=== PATIENT | female | born 1995 | race Two or more races ===

== ENCOUNTER 2017-06-20 12:31 | Emergency (ER) | payer MEDICAID ==
[~2017-06-20] VITALS: Ht 167.6 cm; Wt 61.2 kg
[~2017-06-20 12:31] MED LIST: IBUP40DR2; VENTOLIN
[2017-06-20 12:51] VITALS: BP 165/65
[2017-06-20] MEDS ORDERED: IBUPROFEN 100MG/5ML ORAL SUSP 100 MG/5 ML UD PO ONE (13:45)
[2017-06-20] MEDS ORDERED: cefTRIAXone SOD 1,000 MG VL IM ONE (13:45)
[2017-06-20] MEDS ORDERED: ACETAMINOPHEN 650 mg PER 20 mL UD PO ONE (13:45)
[2017-06-20 13:47] LABS: Basophils # (auto) 0 uL; Basophils % (auto) 0.2 % (0.0-2.0); Eosinophils # (auto) 0.1 uL; Eosinophils % (auto) 0.9 % (0.0-7.0); Hematocrit 40.1 % (36.0-46.0); Hemoglobin 13.2 g/dL (12.2-16.2); Lymphocytes # (auto) 2.3 uL; Lymphocytes % (auto) 15.9 % (10.0-50.0); Mean Corpuscular Hemoglobin 29.8 pg (28.0-32.0); Mean Corpuscular Hgb Conc. 33.1 g/dL (32.0-36.0); Mean Corpuscular Volume 90.1 fL (80.0-100.0); Monocytes # (auto) 1.5 uL; Monocytes % (auto) 10.6 % (0.0-12.0); Neutrophils # (auto) 10.5 uL; Neutrophils % (auto) 72.4 % (37.0-80.0); Platelet Count (auto) 203 10^3/uL (140-450); Red Blood Cells 4.45 10^6/uL (4.0-5.20); Red Cell Distribution Width 13.3 % (11.8-14.3); White Blood Cell 14.6 10^3/uL (4.4-10.8)
[2017-06-20 14:04] LABS: BUN/Creatinine Ratio 12.3; Calcium 8.7 mg/dL (8.5-10.1)
[2017-06-20 15:58] LABS: Urine Bacteria MANY /hpf (None Seen); Urine Blood Negative /uL (Negative); Urine Mucus FEW (None Seen); Urine Specific Gravity 1.012 (1.001-1.035); Urine WBC 3 /hpf (0 - 5)
== END 2017-06-20 15:39 | disposition home or self-care (01) ==
LOC: ER 12:31
DX: J03.90 Acute tonsillitis, unspecified (principal); Z88.6 Allergy status to analgesic agent
CPT/HCPCS: 36415; 70486; 80048; 81001; 84702; 85025; 96372; 99285; J0696

== ENCOUNTER 2017-09-12 00:51 | Emergency (ER) | payer SELFPAY ==
[~2017-09-12] VITALS: Ht 167.6 cm; Wt 63.5 kg
[2017-09-12 00:58] VITALS: BP 119/60
[2017-09-12 01:20] LABS: Basophils # (auto) 0 uL; Basophils % (auto) 0.5 % (0.0-2.0); Eosinophils # (auto) 0.2 uL; Eosinophils % (auto) 2.9 % (0.0-7.0); Hematocrit 39.3 % (36.0-46.0); Hemoglobin 13.7 g/dL (12.2-16.2); Lymphocytes # (auto) 2.7 uL; Lymphocytes % (auto) 33.4 % (10.0-50.0); Mean Corpuscular Hgb Conc. 34.8 g/dL (32.0-36.0); Mean Corpuscular Volume 89.1 fL (80.0-100.0); Monocytes # (auto) 0.5 uL; Monocytes % (auto) 6.7 % (0.0-12.0); Neutrophils # (auto) 4.6 uL; Neutrophils % (auto) 56.5 % (37.0-80.0); Platelet Count (auto) 234 10^3/uL (140-450); Red Blood Cells 4.41 10^6/uL (4.0-5.20); Red Cell Distribution Width 13.8 % (11.8-14.3); White Blood Cell 8.1 10^3/uL (4.4-10.8)
[2017-09-12 01:47] LABS: Albumin 3.5 g/dL (3.4-5.0); BUN/Creatinine Ratio 14.1; Calcium 8.6 mg/dL (8.5-10.1)
[2017-09-12 01:49] LABS: Bilirubin, Total 0.4 mg/dL (0.2-1.0); Total Protein 6.8 g/dL (6.4-8.2)
[2017-09-12 02:12] LABS: INR 0.91 (0.9-1.15); Partial Thromboplastin Time 26.9 sec (23.78-33.04); Prothrombin Time 9.8 sec (9.27-12.13)
== END 2017-09-12 04:00 | disposition left against medical advice (07) ==
LOC: ER 00:53
DX: N93.9 Abnormal uterine and vaginal bleeding, unspecified (principal); Z53.21 Procedure and treatment not carried out due to patient leaving prior to being seen by health care provider
CPT/HCPCS: 36415; 80053; 84702; 85025; 85610; 85730; 86850; 86900; 86901

== ENCOUNTER 2020-07-31 21:20 | Emergency (ER) | payer MEDICAID ==
[~2020-07-31] VITALS: Ht 167.6 cm; Wt 61.2 kg
[2020-07-31 22:33] LABS: Basophils # (auto) 0 10 ^3/uL (0-0.2); Basophils % (auto) 0.5 % (0.0-2.0); Eosinophils # (auto) 0.3 10 ^3/uL (0-0.8); Eosinophils % (auto) 3.1 % (0.0-7.0); Hematocrit 33.5 % (36.0-46.0); Hemoglobin 12.1 g/dL (12.2-16.2); Lymphocytes # (auto) 3.2 10 ^3/uL (0.4-5.4); Lymphocytes % (auto) 35.4 % (10.0-50.0); Mean Corpuscular Hemoglobin 32.3 pg (28.0-32.0); Mean Corpuscular Hgb Conc. 36.1 g/dL (32.0-36.0); Mean Corpuscular Volume 89.4 fL (80.0-100.0); Monocytes # (auto) 0.7 10 ^3/uL (0-1.3); Monocytes % (auto) 7.3 % (0.0-12.0); Neutrophils # (auto) 4.9 10 ^3/uL (1.6-8.6); Neutrophils % (auto) 53.7 % (37.0-80.0); Nucleated Red Blood Cells % 0.2 %; Platelet Count (auto) 225 10^3/uL (140-450); Red Blood Cells 3.74 10^6/uL (4.0-5.20); Red Cell Distribution Width 12.9 % (11.8-14.3); White Blood Cell 9.1 10^3/uL (4.4-10.8)
[2020-07-31 22:52] LABS: Albumin 2.9 g/dL (3.4-5.0); Calcium 7.9 mg/dL (8.5-10.1); Potassium 3.8 mmol/L (3.5-5.1)
[2020-07-31 22:56] LABS: BUN/Creatinine Ratio 15.4; Bilirubin, Total 0.4 mg/dL (0.2-1.0); Total Protein 5.7 g/dL (6.4-8.2)
[2020-08-01 03:00] VITALS: BP 118/72
== END 2020-08-01 05:01 | disposition home or self-care (01) ==
LOC: EDUNIT# 21:20 → EDBD 21:20 → ER 21:23
DX: R56.9 Unspecified convulsions (principal); F41.9 Anxiety disorder, unspecified; J45.909 Unspecified asthma, uncomplicated; F17.210 Nicotine dependence, cigarettes, uncomplicated; F12.10 Cannabis abuse, uncomplicated; R55 Syncope and collapse
CPT/HCPCS: 36415; 70450; 80053; 82962; 84702; 85025; 93005

== ENCOUNTER 2021-06-17 18:01 | Emergency (ER) | payer MEDICAID ==
[~2021-06-17] VITALS: Ht 165.1 cm; Wt 61.2 kg
[2021-06-17 19:05] LABS: Basophils # (auto) 0.1 10 ^3/uL (0-0.2); Basophils % (auto) 0.9 % (0.0-2.0); Eosinophils # (auto) 0.2 10 ^3/uL (0-0.8); Eosinophils % (auto) 2.5 % (0.0-7.0); Hematocrit 36.8 % (36.0-46.0); Hemoglobin 12.9 g/dL (12.2-16.2); Lymphocytes # (auto) 3.7 10 ^3/uL (0.4-5.4); Mean Corpuscular Hgb Conc. 35.1 g/dL (32.0-36.0); Mean Corpuscular Volume 88.3 fL (80.0-100.0); Monocytes # (auto) 0.6 10 ^3/uL (0-1.3); Monocytes % (auto) 6.8 % (0.0-12.0); Neutrophils # (auto) 4.8 10 ^3/uL (1.6-8.6); Neutrophils % (auto) 50.8 % (37.0-80.0); Nucleated Red Blood Cells % 0.1 %; Red Blood Cells 4.16 10^6/uL (4.0-5.20); Red Cell Distribution Width 14.6 % (11.8-14.3); White Blood Cell 9.5 10^3/uL (4.4-10.8)
[2021-06-17 19:15] LABS: Albumin 3.8 g/dL (3.4-5.0); Calcium 9.7 mg/dL (8.5-10.1)
[2021-06-17 19:18] LABS: Bilirubin, Total 0.8 mg/dL (0.2-1.0); Total Protein 7.6 g/dL (6.4-8.2)
[2021-06-17] MEDS ORDERED: SODIUM CHLORIDE 0.9% 1,000 ML IV ONE (20:15)
[2021-06-17] MEDS ORDERED: cefTRIAXone SOD 500 MG VL IV ONE (20:15)
[2021-06-17] MEDS ORDERED: metroNIDAZOLE 500 MG TAB PO ONE (20:15)
[2021-06-17] MEDS ORDERED: DOXYCYCLINE 100 MG TAB/CAP PO ONE (20:15)
[2021-06-17 20:41] LABS: Basophils # (auto) 0.1 10 ^3/uL (0-0.2); Basophils % (auto) 0.7 % (0.0-2.0); Eosinophils # (auto) 0.3 10 ^3/uL (0-0.8); Eosinophils % (auto) 2.5 % (0.0-7.0); Hematocrit 37.4 % (36.0-46.0); Hemoglobin 12.9 g/dL (12.2-16.2); Lymphocytes % (auto) 39.2 % (10.0-50.0); Mean Corpuscular Hemoglobin 30.8 pg (28.0-32.0); Mean Corpuscular Hgb Conc. 34.6 g/dL (32.0-36.0); Mean Corpuscular Volume 89.1 fL (80.0-100.0); Monocytes # (auto) 0.7 10 ^3/uL (0-1.3); Monocytes % (auto) 7.1 % (0.0-12.0); Neutrophils # (auto) 5.2 10 ^3/uL (1.6-8.6); Neutrophils % (auto) 50.5 % (37.0-80.0); Nucleated Red Blood Cells % 0.1 %; Red Cell Distribution Width 14.9 % (11.8-14.3); White Blood Cell 10.2 10^3/uL (4.4-10.8)
[2021-06-17 20:58] LABS: Calcium 9.7 mg/dL (8.5-10.1); Magnesium 2.4 mg/dL (1.6-2.6)
[2021-06-17 21:00] LABS: BUN/Creatinine Ratio 23.6
[2021-06-17] MEDS ORDERED: DOXY-286 PO (21:16)
[2021-06-17] MEDS ORDERED: METR500T14 PO (21:16)
[2021-06-17 23:46] VITALS: BP 96/66
== END 2021-06-17 22:30 | disposition home or self-care (01) ==
LOC: ER 18:11
DX: R56.9 Unspecified convulsions (principal); N89.8 Other specified noninflammatory disorders of vagina; J45.909 Unspecified asthma, uncomplicated; F17.210 Nicotine dependence, cigarettes, uncomplicated
CPT/HCPCS: 36415; 80048; 80053; 80164; 83735; 84702; 85025; 86592; 86703; 93005; 96361; 96374; 99285; J0696; J7030

== ENCOUNTER 2021-08-08 03:24 | Emergency (ER) | payer MEDICAID ==
[~2021-08-08] VITALS: Ht 167.6 cm; Wt 59.0 kg
[~2021-08-08 03:24] MED LIST changes: +DOXY-286 PO; +METR500T14 PO
[2021-08-08] MEDS ORDERED: ONDANSETRON HCL 4 MG/2 ML VIAL ONE (03:44)
[2021-08-08] MEDS ORDERED: ONDANSETRON HCL 4 MG/2 ML VIAL IV ONE (03:45)
[2021-08-08 04:55] LABS: Albumin 3.4 g/dL (3.4-5.0); Calcium 8.6 mg/dL (8.5-10.1); Potassium 4.2 mmol/L (3.5-5.1)
[2021-08-08 04:58] LABS: BUN/Creatinine Ratio 20.5; Bilirubin, Total 0.6 mg/dL (0.2-1.0); Total Protein 6.8 g/dL (6.4-8.2)
[2021-08-08 06:21] LABS: Basophils # (auto) 0 10 ^3/uL (0-0.2); Basophils % (auto) 0.3 % (0.0-2.0); Eosinophils # (auto) 0.1 10 ^3/uL (0-0.8); Eosinophils % (auto) 0.9 % (0.0-7.0); Hematocrit 37.5 % (36.0-46.0); Hemoglobin 12.7 g/dL (12.2-16.2); Lymphocytes # (auto) 1.6 10 ^3/uL (0.4-5.4); Lymphocytes % (auto) 12.6 % (10.0-50.0); Mean Corpuscular Hemoglobin 29.9 pg (28.0-32.0); Mean Corpuscular Hgb Conc. 33.9 g/dL (32.0-36.0); Mean Corpuscular Volume 88.4 fL (80.0-100.0); Monocytes # (auto) 0.9 10 ^3/uL (0-1.3); Monocytes % (auto) 6.7 % (0.0-12.0); Neutrophils # (auto) 10.1 10 ^3/uL (1.6-8.6); Neutrophils % (auto) 79.5 % (37.0-80.0); Red Blood Cells 4.24 10^6/uL (4.0-5.20); Red Cell Distribution Width 13.4 % (11.8-14.3); White Blood Cell 12.7 10^3/uL (4.4-10.8)
[2021-08-08 08:28] LABS: Urine Bacteria NONE SEEN /hpf (None Seen); Urine Blood 1+ /uL (Negative); Urine Budding Yeast OCCASIONAL /hpf (None Seen); Urine Mucus FEW (None Seen); Urine Specific Gravity 1.021 (1.001-1.035); Urine WBC 247 /hpf (0 - 5); Urine WBC Clumps PRESENT /hpf (None Seen)
[2021-08-08 09:14] LABS: Alcohol, Urine < 3.0 mg/dL (0-10); Amphetamine Screen, Urine POSITIVE (NEGATIVE); Barbiturate Scree,Urine NEGATIVE (NEGATIVE); Benzodiazephine Screen, Urine NEGATIVE (NEGATIVE); Cannabinoid Screen, Urine POSITIVE (NEGATIVE); Cocaine Screen, Urine NEGATIVE (NEGATIVE); Opiate Scree,Urine NEGATIVE (NEGATIVE); Phencyclidine Screen, Urine NEGATIVE (NEGATIVE)
[2021-08-08 10:00] VITALS: BP 99/64
[2021-08-08] MEDS ORDERED: LORA0.5T20 PO (10:02)
[2021-08-08] MEDS ORDERED: NITR-87 PO (10:53)
== END 2021-08-08 10:58 | disposition home or self-care (01) ==
LOC: ER 03:24
DX: R56.9 Unspecified convulsions (principal); N39.0 Urinary tract infection, site not specified
CPT/HCPCS: 36415; 70450; 70486; 72125; 80053; 80307; 81001; 81025; 93005; 96374; 99285; J2405

== ENCOUNTER 2021-11-20 06:50 | Emergency (ER) | payer MEDICAID ==
[~2021-11-20] VITALS: Ht 172.7 cm; Wt 60.0 kg
[~2021-11-20 06:50] MED LIST changes: +LORA0.5T20 PO; +NITR-87 PO
[2021-11-20 07:34] VITALS: BP 90/38
[2021-11-20] MEDS ORDERED: SODIUM CHLORIDE 0.9% 1,000 ML IVB ONE (07:45)
== END 2021-11-20 12:45 | disposition left against medical advice (07) ==
LOC: EDUNIT# 06:50 → ER 06:50 → EDBD 06:50 → ER 08:45
DX: T40.411A Poisoning by fentanyl or fentanyl analogs, accidental (unintentional), initial encounter (principal); R41.82 Altered mental status, unspecified; F41.9 Anxiety disorder, unspecified; J45.909 Unspecified asthma, uncomplicated; F17.210 Nicotine dependence, cigarettes, uncomplicated; F12.10 Cannabis abuse, uncomplicated; Y92.9 Unspecified place or not applicable
CPT/HCPCS: 96360; 99283; J7030

== ENCOUNTER 2022-01-30 10:19 | Emergency (ER) | payer MEDICAID | END 2022-01-30 10:23 | disposition left against medical advice (07) | LOC: EDBD 10:19 → ER 10:19 | DX: R53.1 Weakness (principal); Z53.21 Procedure and treatment not carried out due to patient leaving prior to being seen by health care provider ==

== ENCOUNTER 2024-09-03 05:53 | Inpatient (IN) | payer MEDICAID ==
[~2024-09-03] VITALS: Ht 167.6 cm; Wt 71.1 kg
[2024-09-03] VITALS (7 sets, daily range): BP systolic 97–106; BP diastolic 52–72; PULSE 68–99; RESP 14–24; TEMP 97.6–98.2; O2SAT 97–100
[~2024-09-03 05:53] MED LIST changes: +LORA-1121 PO; -LORA0.5T20 PO; +METR-344 PO; -METR500T14 PO
--- NOTE | 2024-09-03 07:06 | ED.PDOC ---
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 Patient reports on trying to sleep off with the pain, to the bilateral flank areas. The associated symptoms foul smell during urination, pain during urination, nausea and vomiting. Denies chills, fever, /D, SOB, CP. No other associated symptoms, modifiers, recent injuries or sick contacts present at this time. Chief Complaint: Flank Pain Time Seen by MD: 06:40 Primary Care Provider: NINE Reviewed Notes: Nurses Notes, Medications, Allergies Allergies: Coded Allergies: Hydromorphone (Verified Allergy, Unknown, 06/17/21) Home Meds Active Scripts Nitrofurantoin Monohydrate Mac (Macrobid) 100 Mg Cap, 100 MG PO BID for 7 Days, #14 CAP Prov:ALEXANDRU JOSE MD 08/08/21 Lorazepam (ATIVAN TABLET) 0.5 Mg Tb, 1 TAB PO BID for 3 Days, #6 TAB Prov:ALEXANDRU JOSE MD 08/08/21 Metronidazole (Flagyl) 500 Mg Tab, 1 TAB PO BID, #14 TAB 0 Refills Do not consume alcohol while taking this medication. Prov:GYPSY LOPEZ MD 06/17/21 Doxycycline Hyclate (DOXYCYCLINE HYCLATE) 100 Mg Tab, 1 TAB PO BID, #14 TAB 0 Refills Prov:GYPSY LOPEZ MD 06/17/21 Reported Medications [Ventolin] No Conflict Check 11/30/09 Ibuprofen (Childrens Ibuprofen) 40 Mg/Ml Edson 11/30/09 Information Source: Patient Mode of Arrival: EMS Severity: Moderate Timing: Days Duration: Since onset, Days Prehospital treatment: None Past Medical History PAST MEDICAL HISTORY: Anxiety, Asthma, Cancer (Kidney cancer), Seizures Past Medical History (Other): Nephrectomy-right side Surgical History (Other): Tumor removal from kidney(unknown which side) 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 Family History Family History: Reviewed,noncontributory to illness Family History (Other): family history positive for seizures in father Social History Smoker: Unknown Alcohol: Unknown Drugs: Unknown Lives In: Home Constitutional: denies: chills, diaphoresis, fatigue, fever, malaise, sweats, weakness, others EENTM: denies: blurred vision, double vision, ear bleeding, ear discharge, ear drainage, ear pain, ear ringing, eye pain, eye redness, hearing loss, mouth pain, mouth swelling, nasal discharge, nose bleeding, nose congestion, nose pain, photophobia, tearing, throat pain, throat swelling, voice changes, others Respiratory: denies: cough, hemoptysis, orthopnea, SOB at rest, shortness of b reath, SOB with excertion, stridor, wheezing, others Cardiovascular: denies: chest pain, dizzy spells, diaphoresis, Dyspnea on exertion, edema, irregular heart beat, left arm pain, lightheadedness, palpitations, PND, syncope, others Gastrointestinal: reports: nausea, vomiting; denies: abdomen distended, abdominal pain, blood streaked bowels, constipated, diarrhea, dysphagia, difficulty swallowing, hematemesis, melena, poor appetite, poor fluid intake, rectal bleeding, rectal pain, others Genitourinary: reports: flank pain, pain (During urination), others (Foul smell in urine); denies: abnormal vagina bleeding, burning, dyspareunia, dysuria, frequency, hematuria, incontinence, , vagina discharge, urgency Neurological: denies: dizziness, fainting, headache, left sided numbness, left sided weakness, numbness, paresthesia, pre-existing deficit, right sided numbness, right sided weakness, seizure, speech problems, tingling, tremors, weakness, others Musculoskeletal: denies: back pain, gout, joint pain, joint swelling, muscle pain, muscle stiffness, neck pain, others Integumetry: denies: bruises, change in color, change in hair/nails, dryness, laceration, lesions, lumps, rash, wounds, others Allergic/Immunocompromised: denies: Difficulty Healing, Frequent Infections, Hives, Itching, others Hematologic/Lymphatic: denies: anemia, blood clots, easy bleeding, easy bruising, swollen glands, others Endocrine: denies: excessive hunger, excessive sweating, excessive thirst, excessive urination, flushing, intolerance to cold, intolerance to heat, unexplained weight gain, unexplained weight loss, others Psychiatric: denies: anxiety, bipolar disorder, depression, hopeless, panic disorder, schizophrenia, sleepless, suicidal, others All Other Systems: Reviewed and Negative Physical Exam General Appearance: Moderate Distress, Normal HEENT: Normal ENT Inspection, Pharynx Normal, TMs Normal Neck: Full Range of Motion, Non-Tender, Normal, Normal Inspection Respiratory: Chest Non-Tender, Lungs Clear, No Accessory Muscle Use, No Respiratory Distress, Normal Breath Sounds Cardiovascular: No Edema, No JVD, No Murmur, No Gallop, Normal Peripheral Pulses, Regular Rate/Rhythm Breast Exam: Deferred Gastrointestinal: No Organomegaly, Non Tender, No Pulsatile Mass, Normal Bowel Sounds, Soft Genitalia: Deferred Pelvic: Deferred Rectal: Deferred Extremities: No calf tenderness, Normal capillary refill, Normal inspection, Normal range of motion, Non-tender, No pedal edema Musculoskeletal : Apperance: Normal Neurologic: Alert, artificial inseminator II-XII nml as Tested, No Motor Deficits, Normal Affect, Normal Mood, No Sensory Deficits Cerebellar Function: Normal Reflexes: Normal Skin: Dry, Normal Color, Warm Peripheral Pulses: 3+ Radial (R), 3+ Radial (L) Lymphatic: No Adenopathy Was a procedure done? Was a procedure done?: No Differential Dx Considerations may include: Urinary tract infection Electrolyte imbalance X-Ray, Labs, Meds, VS Vital Signs Date Time Temp Pulse Resp B/P (MAP) Pulse Ox O2 Delivery O2 Flow Rate FiO2 09/03/24 07:40 99 24 99 Room Air* 0 21 09/03/24 07:39 99.2 99 24 109/57 (74) 99 99.2 09/03/24 07:39 99 24 99 Room Air 09/03/24 07:37 99 24 109/57 09/03/24 06:02 98.7 89 18 103/68 (80) 100 98.7 Lab Test 09/03/24 07:00 09/03/24 06:51 Range/Units White Blood Count 15.0 H 4.4-10.8 10^3/uL Red Blood Count 4.13 4.0-5.20 10^6/uL Hemoglobin 12.8 12.2-16.2 g/dL Hematocrit 36.3 36.0-46.0 % Mean Corpuscular Volume 88.0 80.0-100.0 fL Mean Corpuscular Hemoglobin 31.0 28.0-32.0 pg Mean Corpuscular Hemoglobin Concent 35.2 32.0-36.0 g/dL Red Cell Distribution Width 13.1 11.8-14.3 % Platelet Count 221 140-450 10^3/uL Mean Platelet Volume 8.4 6.9-10.8 fL Neutrophils (%) (Auto) 83.8 H 37.0-80.0 % Lymphocytes (%) (Auto) 7.7 L 10.0-50.0 % Monocytes (%) (Auto) 8.0 0.0-12.0 % Eosinophils (%) (Auto) 0.3 0.0-7.0 % Basophils (%) (Auto) 0.2 0.0-2.0 % Neutrophils # (Auto) 12.5 H 1.6-8.6 10 ^3/uL Lymphocytes # (Auto) 1.2 0.4-5.4 10 ^3/uL Monocytes # (Auto) 1.2 0-1.3 10 ^3/uL Eosinophils # (Auto) 0 0-0.8 10 ^3/uL Basophils # (Auto) 0 0-0.2 10 ^3/uL Nucleated Red Blood Cells 0.0 % Sodium Level 138 136-145 mmol/L Potassium Level 4.0 3.5-5.1 mmol/L Chloride Level 105 98-107 mmol/L Carbon Dioxide Level 23 20-31 mmol/L Anion Gap 10 5-15 Blood Urea Nitrogen 8 L 9-23 mg/dL Creatinine 0.71 0.550-1.02 mg/dL Glomerular Filtration Rate Calc 118 >90 mL/min BUN/Creatinine Ratio 11.3 10.0-20.0 Serum Glucose 94 74-106 mg/dL Calcium Level 10.1 8.7-10.4 mg/dL Urine Color Colorless Yellow Urine Clarity Turbid H Clear Urine pH 7.0 5.0-9.0 Urine Specific [place] 1.015 1.001-1.035 Urine Protein Negative Negative Urine Ketones 2+ H Negative Urine Blood Negative Negative /uL Urine Nitrite 1+ H Negative Urine Bilirubin Negative Negative Urine Urobilinogen Normal Negative mg/dL Urine Leukocyte Esterase 2+ Negative /uL Urine RBC 1 0 - 4 /hpf Urine Microscopic WBC 25 H 0-5 /HPF Urine Squamous Epithelial Cells Mod <5 /hpf Urine Bacteria Few H None Seen /hpf Urine Glucose Normal Normal mg/dL Current Medications Medications (Trade) Dose Ordered Sig/Cuong Route Start Time Stop Time Status Last Admin Ondansetron HCl (Zofran) 4 mg ONCE ONCE IV 09/03/24 07:00 09/03/24 07:01 DC 09/03/24 07:35 Sodium Chloride 1,000 ml @ 1,000 mls/hr Q1H ONCE IVB 09/03/24 07:00 09/03/24 07:59 DC 09/03/24 07:34 Morphine Sulfate 4 mg ONCE ONCE IV 09/03/24 07:00 09/03/24 07:01 DC 09/03/24 07:37 Patient alert. Complaining of flank pain. She can not ambulate without having pain. Vitals stable. Answering all questions. Establish intravenous access. Was given fluids. Was given morphine. Was given Zofran. Was given Rocephin. She will be admitted because of her chronic condition prevent sepsis from urine. Explained to the patient. Continue monitoring. Time of 1ST Reevaluation: 07:10 Reevaluation 1ST: Unchanged Patient Education/Counseling: Diagnosis, Treatment, Prognosis Family Education/Counseling: No Family Present SEPSIS Sepsis Screen Date sepsis recognized/suspect: Sep 03, 2024 Time Sepsis recognized/suspect: 604 Recent Procedure: No On Antibiotic Therapy: No Respiratory Rate >20: No Heart Rate >90: No Temp<36 C (96.8 F) or >38.3 C: No SBP <90 or MAP <65 mmHG: No New Acute Mental Status Change: No Is the patient on CPAP, BIPAP,: No Physician Orders Ceftriaxone Ivpb Rocephin (09/03/24 08:45) Vital Signs Date Time Temp Pulse Resp B/P (MAP) Pulse Ox O2 Delivery O2 Flow Rate FiO2 09/03/24 07:40 99 24 99 Room Air* 0 21 09/03/24 07:39 99.2 99 24 109/57 (74) 99 99.2 09/03/24 07:39 99 24 99 Room Air 09/03/24 07:37 99 24 109/57 09/03/24 06:02 98.7 89 18 103/68 (80) 100 98.7 Laboratory Tests Test 09/03/24 07:00 White Blood Count 15.0 10^3/uL (4.4-10.8) H Medications Medications Dose Ordered Sig/Cuong Route Start Time Stop Time Status Last Admin Dose Admin Morphine Sulfate 4 mg ONCE ONCE IV 09/03/24 07:00 09/03/24 07:01 DC 09/03/24 07:37 Ondansetron HCl 4 mg ONCE ONCE IV 09/03/24 07:00 09/03/24 07:01 DC 09/03/24 07:35 Sodium Chloride 1,000 ml @ 1,000 mls/hr Q1H ONCE IVB 09/03/24 07:00 09/03/24 07:59 DC 09/03/24 07:34 Departure 1 Departure Time of Disposition: 08:33 Impression: Primary Impression: Sepsis due to urinary tract infection Disposition: ADMITTED INPATIENT Admit to: Med Surg Condition: Guarded Critical Care Note Critical Care Time?: Yes (90 min-critical care time only) Critical care comment: Pre-existing condition possible sepsis from urine Stability Stability form required: No Heart Score Heart Score: Heart Score Response (Comments) Value History N/A 0 EKG N/A 0 Age N/A 0 Risk Factors N/A 0 Troponin N/A 0 Total 0 I personally scribed for ALEXANDRU JOSE MD ([email or web address]) on 09/03/24 at 07:06. Electronically submitted by Laz Lemons ([email or web address]). ALEXANDRU JOSE MD Sep 03, 2024 07:06
[2024-09-03 07:17] LABS: Hematocrit 36.3 % (36.0-46.0); Hemoglobin 12.8 g/dL (12.2-16.2); Mean Corpuscular Hemoglobin 31.0 pg (28.0-32.0); Mean Corpuscular Volume 88.0 fL (80.0-100.0); Nucleated Red Blood Cells % 0.0 %
[2024-09-03 07:22] LABS: Chloride 105 mmol/L (98-107); Potassium 4.0 mmol/L (3.5-5.1); Sodium 138 mmol/L (136-145)
[2024-09-03 07:23] LABS: Anion Gap 10 (5-15); Calcium 10.1 mg/dL (8.7-10.4); Carbon Dioxide 23 mmol/L (20-31)
[2024-09-03 07:28] LABS: BUN/Creatinine Ratio 11.3 (10.0-20.0); Glucose 94 mg/dL (74-106)
[2024-09-03 07:32] LABS: Blood Urea Nitrogen 8 mg/dL (9-23)
[2024-09-03] MEDS: SODIUM CHLORIDE 0.9% 1,000 ML IVB ONE (07:34)
[2024-09-03] MEDS: ONDANSETRON HCL 4 MG/2 ML VIAL IV ONE (07:35)
[2024-09-03] MEDS: MORPHINE SULFATE 4 MG/ML SYR/VIAL IV ONE (07:37)
[2024-09-03 07:50] LABS: Urine Protein, UAD Negative (Negative)
[2024-09-03] MEDS: cefTRIAXone 1GM/50ML D5W 50 ML IV ONE (08:35)
[2024-09-03] MEDS: SODIUM CHLORIDE 0.9% 1,000 ML IV ONE ×2 (08:36→10:08)
[2024-09-03] MEDS ORDERED: DOCUSATE SOD 100 MG CAP PO PRN (12:30)
[2024-09-03] MEDS ORDERED: ACETAMINOPHEN 325 MG TAB PO PRN (12:30)
--- NOTE | 2024-09-03 12:31 | DVHHP2 ---
History of Present Illness Reason for Visit: Flank pain History of Present Illness Apurva Conteh is a 28-year-old female with past medial history renal cancer, seizures-last seizure 2 years ago and not on any medications, and anxiety, who came to the hospital for flank pain. Patient states she has been experiencing flank pain for a couple days, as well as foul smelling urine. She tried staying at home and waiting it out, but her symptoms were worsening, prompting her to come to the hospital. 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 Dyspnea, Edema, Lt Headedness, Other Gastrointestinal: No: Nausea, Vomiting, Abdominal Pain, Diarrhea, Constipation, Melena, Hematochezia, Other Genitourinary: Dysuria, Frequency; No Incontinence, No Hematuria, No Retention, No Other Musculoskeletal: back pain (Left flank pain); No: other, neck pain, shoulder pain, arm pain, hand pain, leg pain, foot pain Skin: No: Rash, Lesions, Jaundice, Bruising, Other Neurological: No: Weakness, Numbness, Incoordination, Change in speech, Confusion, Seizures, Other Allergies: Coded Allergies: Hydromorphone (Verified Allergy, Unknown, 06/17/21) Exam Vital Signs Vital Signs Date Time Temp Pulse Resp B/P (MAP) Pulse Ox O2 Delivery O2 Flow Rate FiO2 09/03/24 11:00 54 22 103/56 (72) 99 09/03/24 09:17 Room Air* 0 21 09/03/24 09:17 98.6 98.6 General Appearance: Alert, Oriented X3, Cooperative, mild distress HEENT: Atraumatic, PERRLA Respiratory: Clear to auscultation, Normal air movement Cardiovascular: Regular rate, Normal S1, Normal S2, No murmurs Abdominal: Normal bowel sounds, Soft, No hepatospenomegaly, Other (Left flank pain) Extremities: No clubbing, No cyanosis, No edema, Normal pulses, No tenderness/swelling Skin: No rashes, No breakdown, No significant lesion Neuro: Normal gait, Normal speech, Strength at 5/5 X4 ext Psych/Mental Status: Mental status NL, Mood NL Labs/Xrays Labs Test 09/03/24 11:28 09/03/24 07:00 09/03/24 06:51 Range/Units Lactic Acid Level 0.7 0.4-2.0 mmol/L White Blood Count 15.0 H 4.4-10.8 10^3/uL Red Blood Count 4.13 4.0-5.20 10^6/uL Hemoglobin 12.8 12.2-16.2 g/dL Hematocrit 36.3 36.0-46.0 % Mean Corpuscular Volume 88.0 80.0-100.0 fL Mean Corpuscular Hemoglobin 31.0 28.0-32.0 pg Mean Corpuscular Hemoglobin Concent 35.2 32.0-36.0 g/dL Red Cell Distribution Width 13.1 11.8-14.3 % Platelet Count 221 140-450 10^3/uL Mean Platelet Volume 8.4 6.9-10.8 fL Neutrophils (%) (Auto) 83.8 H 37.0-80.0 % Lymphocytes (%) (Auto) 7.7 L 10.0-50.0 % Monocytes (%) (Auto) 8.0 0.0-12.0 % Eosinophils (%) (Auto) 0.3 0.0-7.0 % Basophils (%) (Auto) 0.2 0.0-2.0 % Neutrophils # (Auto) 12.5 H 1.6-8.6 10 ^3/uL Lymphocytes # (Auto) 1.2 0.4-5.4 10 ^3/uL Monocytes # (Auto) 1.2 0-1.3 10 ^3/uL Eosinophils # (Auto) 0 0-0.8 10 ^3/uL Basophils # (Auto) 0 0-0.2 10 ^3/uL Nucleated Red Blood Cells 0.0 % Sodium Level 138 136-145 mmol/L Potassium Level 4.0 3.5-5.1 mmol/L Chloride Level 105 98-107 mmol/L Carbon Dioxide Level 23 20-31 mmol/L Anion Gap 10 5-15 Blood Urea Nitrogen 8 L 9-23 mg/dL Creatinine 0.71 0.550-1.02 mg/dL Glomerular Filtration Rate Calc 118 >90 mL/min BUN/Creatinine Ratio 11.3 10.0-20.0 Serum Glucose 94 74-106 mg/dL Calcium Level 10.1 8.7-10.4 mg/dL Urine Color Colorless Yellow Urine Clarity Turbid H Clear Urine pH 7.0 5.0-9.0 Urine Specific [place] 1.015 1.001-1.035 Urine Protein Negative Negative Urine Ketones 2+ H Negative Urine Blood Negative Negative /uL Urine Nitrite 1+ H Negative Urine Bilirubin Negative Negative Urine Urobilinogen Normal Negative mg/dL Urine Leukocyte Esterase 2+ Negative /uL Urine RBC 1 0 - 4 /hpf Urine Microscopic WBC 25 H 0-5 /HPF Urine Squamous Epithelial Cells Mod <5 /hpf Urine Bacteria Few H None Seen /hpf Urine Glucose Normal Normal mg/dL SEPSIS Sepsis Screen Date sepsis recognized/suspect: Sep 03, 2024 Time Sepsis recognized/suspect: 919 Recent Procedure: No On Antibiotic Therapy: No Respiratory Rate >20: No Heart Rate >90: No Temp<36 C (96.8 F) or >38.3 C: No SBP <90 or MAP <65 mmHG: No New Acute Mental Status Change: No Is the patient on CPAP, BIPAP,: No Physician Orders Sodium Chloride 0.9% (09/03/24 08:45) Admit (09/03/24 12:17) Code Status (09/03/24 12:17) Ondansetron Hcl (Zofran) (09/03/24 12:30) Docusate Sodium Capsule (Colace Capsule) (09/03/24 12:30) Complete Blood Count (09/04/24 04:00) Comprehensive Metabolic Panel (09/04/24 04:00) Condition: Serious (09/03/24 12:17) Acetaminophen Tablet (Tylenol Tablet) (09/03/24 12:30) Ceftriaxone Ivpb Rocephin (09/04/24 09:00) Ketorolac Injection (Toradol Injection) (09/03/24 12:30) Vital Signs Date Time Temp Pulse Resp B/P (MAP) Pulse Ox O2 Delivery O2 Flow Rate FiO2 09/03/24 11:00 54 22 103/56 (72) 99 09/03/24 09:17 73 14 99 Room Air* 0 21 09/03/24 09:17 98.6 73 14 109/52 (71) 99 98.6 09/03/24 08:28 79 22 106/63 09/03/24 07:40 99 24 99 Room Air* 0 21 09/03/24 07:39 99.2 99 24 109/57 (74) 99 99.2 09/03/24 07:39 99 24 99 Room Air 09/03/24 07:37 99 24 109/57 09/03/24 06:02 98.7 89 18 103/68 (80) 100 98.7 Laboratory Tests Test 09/03/24 07:00 09/03/24 11:28 White Blood Count 15.0 10^3/uL (4.4-10.8) H Lactic Acid Level 0.7 mmol/L (0.4-2.0) Medications Medications Dose Ordered Sig/Cuong Route Start Time Stop Time Status Last Admin Dose Admin Ceftriaxone Sodium 50 ml @ 100 mls/hr ONCE ONCE IV 09/03/24 08:45 09/03/24 09:14 DC 09/03/24 08:35 100 MLS/HR Morphine Sulfate 4 mg ONCE ONCE IV 09/03/24 07:00 09/03/24 07:01 DC 09/03/24 07:37 4 MG Ondansetron HCl 4 mg ONCE ONCE IV 09/03/24 07:00 09/03/24 07:01 DC 09/03/24 07:35 4 MG Sodium Chloride 1,000 ml @ 150 mls/hr Q6H40M ONCE IV 09/03/24 08:45 09/03/24 15:24 09/03/24 10:08 150 MLS/HR Sodium Chloride 1,000 ml @ 1,000 mls/hr Q1H ONCE IV 09/03/24 08:45 09/03/24 09:44 DC 09/03/24 08:36 1,000 MLS/HR Sodium Chloride 1,000 ml @ 1,000 mls/hr Q1H ONCE IVB 09/03/24 07:00 09/03/24 07:59 DC 09/03/24 07:34 1,000 MLS/HR Assessment/Plan Assessment/Plan Assessment: Complicated urinary tract infection, Possible pyelonephritis, Leukocytosis, Possible urosepsis, Plan: Admit to Med-Surg, IV antibiotics, IV hydration, Pain management, Blood cultures, Urine cultures, Plan discussed with: Patient My Orders Orders - WIL STRONG Procedure Category Date Status Time Admit ADMIT 09/03/24 Verified 12:17 Code Status CODE 09/03/24 Verified 12:17 Ondansetron Hcl PHA 09/03/24 Verified (Zofran) 12:30 Docusate Sodium PHA 09/03/24 Verified Capsule (Colace 12:30 Complete Blood Count LAB 09/04/24 Verified 04:00 Comprehensive LAB 09/04/24 Verified Metabolic Panel 04:00 Condition: Serious ESTELLA 09/03/24 Verified 12:17 Acetaminophen Tablet PHA 09/03/24 Verified (Tylenol Tablet) 12:30 Ceftriaxone Ivpb PHA 09/04/24 Verified Rocephin 09:00 Ketorolac Injection PHA 09/03/24 Verified (Toradol Injection) 12:30 Date of Service: Sep 03, 2024 Billing Provider: WIL STRONG Common Visit Codes: [id number] INP/OBS CARE (MOD) WIL STRONG Sep 03, 2024 12:31
[2024-09-03 12:58] LABS: Cannabinoid Screen, Urine Pos (NEGATIVE)
[2024-09-03 13:03] LABS: Amphetamine Screen, Urine Pos (NEGATIVE); Barbiturate Scree,Urine Neg (NEGATIVE); Benzodiazephine Screen, Urine Pos (NEGATIVE); Cocaine Screen, Urine Neg (NEGATIVE); Opiate Scree,Urine Neg (NEGATIVE); Phencyclidine Screen, Urine Neg (NEGATIVE)
[2024-09-03] MEDS: KETOROLAC TROMETH 30 MG/ML 1ML VIAL IV PRN (15:22)
[2024-09-04] VITALS (8 sets, daily range): BP systolic 105–116; BP diastolic 42–75; PULSE 50–74; RESP 17–22; TEMP 97.7–98.1; O2SAT 98–100
[2024-09-04 06:40] LABS: Hematocrit 35.7 % (36.0-46.0); Hemoglobin 12.5 g/dL (12.2-16.2); Mean Corpuscular Hemoglobin 31.2 pg (28.0-32.0); Mean Corpuscular Volume 89.4 fL (80.0-100.0); Nucleated Red Blood Cells % 0.0 %
[2024-09-04 07:02] LABS: Alanine Aminotransferase 10 U/L (7-40); Albumin 3.5 g/dL (3.2-4.8); Alkaline Phosphatase 50 U/L (46-116); Anion Gap 12 (5-15); BUN/Creatinine Ratio 15.4 (10.0-20.0); Blood Urea Nitrogen 10 mg/dL (9-23); Calcium 9.3 mg/dL (8.7-10.4); Glucose 84 mg/dL (74-106); Potassium 3.6 mmol/L (3.5-5.1); Sodium 140 mmol/L (136-145); Total Protein 5.8 g/dL (5.7-8.2)
[2024-09-04 07:03] LABS: Bilirubin, Total 0.5 mg/dL (0.2-1.0); Carbon Dioxide 19 mmol/L (20-31); Chloride 109 mmol/L (98-107)
[2024-09-04] MEDS: cefTRIAXone 1GM/50ML D5W 50 ML IV SCH (09:45)
--- NOTE | 2024-09-04 14:41 | DVHPN2 ---
Reviewed: Care Plan, H&P, Labs, Medications, Previous Orders, Radiology Changes from previous H/P or p: No Changes General: Per HPI Eyes: No Pain, No Vision change, No Conjunctivae inflammation, No Eyelid inflammation, No Other, No Redness ENT: No Ear pain, No Ear discharge, No Nose pain, No Nose discharge, No Nose congestion, No Mouth pain, No Mouth swelling, No Throat pain, No Throat swelling, No Other Cardiovascular: No Chest Pain, No Palpitations, No Orthopnea, No Paroxysmal Noc. Dyspnea, No Edema, No Lt Headedness, No Other Respiratory: No Cough, No Dry, No Shortness of breath, No SOB with excertion, No Wheezing, No Hemoptysis, No Pleuritic Pain, No Sputum, No Other Gastrointestinal: No Nausea, No Vomiting, No Abdominal Pain, No Diarrhea, No Constipation, No Melena, No Hematochezia, No Other Genitourinary: Dysuria, Frequency; No Incontinence, No Hematuria, No Retention, No Other Musculoskeletal: No other, No neck pain, No shoulder pain, No arm pain; back pain (Left flank pain); No hand pain, No leg pain, No foot pain Skin: No Rash, No Lesions, No Jaundice, No Bruising, No Other Objective Vitals Vital Signs Date Time Temp Pulse Resp B/P (MAP) Pulse Ox O2 Delivery O2 Flow Rate FiO2 09/04/24 12:29 97.9 59 17 107/56 (73) 99 97.9 09/04/24 08:00 Room Air* 0 21 Intake/Output Intake and Output 09/04/24 07:00 Intake Total 3150 ml Balance 3150 ml Intake Oral 650 ml IV Total 2500 ml # Voids 3 Medications Current Medications Medications Dose Ordered Sig/Cuong Route Start Time Stop Time Status Last Admin Dose Admin Ondansetron HCl 4 mg Q4HP PRN IV 09/03/24 12:30 Docusate Sodium 100 mg BIDPRN PRN PO 09/03/24 12:30 Acetaminophen 650 mg Q6HP PRN PO 09/03/24 12:30 Ceftriaxone Sodium 50 ml @ 100 mls/hr DAILY@09 IV 09/04/24 09:00 09/04/24 09:45 100 MLS/HR Ketorolac Tromethamine 15 mg Q6HPRN PRN IV 09/03/24 12:30 09/08/24 12:29 09/04/24 11:42 15 MG Laboratory Results Laboratory Tests 09/04/24 05:47 Chemistry Test 09/04/24 05:47 Albumin 3.5 g/dL (3.2-4.8) Calcium Level 9.3 mg/dL (8.7-10.4) Total Protein 5.8 g/dL (5.7-8.2) LFT Test 09/04/24 05:47 Alanine Aminotransferase (ALT) 10 U/L (7-40) Alkaline Phosphatase 50 U/L (46-116) Aspartate Amino Transferase (AST) 14 U/L (13-40) Total Bilirubin 0.5 mg/dL (0.2-1.0) Urinalysis Test 09/03/24 06:51 Urine Color Colorless (Yellow) Urine Clarity Turbid (Clear) H Urine pH 7.0 (5.0-9.0) Urine Specific [place] 1.015 (1.001-1.035) Urine Protein Negative (Negative) Urine Ketones 2+ (Negative) H Urine Blood Negative /uL (Negative) Urine Nitrite 1+ (Negative) H Urine Bilirubin Negative (Negative) Urine Urobilinogen Normal mg/dL (Negative) Urine Leukocyte Esterase 2+ /uL (Negative) Urine RBC 1 /hpf (0 - 4) Urine Microscopic WBC 25 /HPF (0-5) H Urine Squamous Epithelial Cells Mod /hpf (<5) Urine Bacteria Few /hpf (None Seen) H Urine Glucose Normal mg/dL (Normal) Microbiology Microbiology Date/Time Source Procedure Growth Status 09/03/24 12:23 Voided Urine Urine Culture - Preliminary Resulted Assessment/Plan Assessment/Plan Wero Apurva is a 28-year-old female with past medial history renal cancer, seizures-last seizure 2 years ago and not on any medications, and anxiety, who came to the hospital for flank pain. Patient states she has been experiencing flank pain for a couple days, as well as foul smelling urine. She tried staying at home and waiting it out, but her symptoms were worsening, prompting her to come to the hospital. Complicated urinary tract infection, Possible pyelonephritis, Leukocytosis, Possible urosepsis, sepsis with UTI nausea/vomiting 09/04/2024 continue with IV Abx pending urinalysis, sensitivity Plan discussed with: Patient Date of Service: Sep 04, 2024 Billing Provider: KORINA CHATTERJEE DO Common Visit Codes: [id number] INP/OBS CARE(HIGH) KORINA CHATTERJEE DO Sep 04, 2024 14:41
[2024-09-05] VITALS (8 sets, daily range): BP systolic 107–114; BP diastolic 61–67; PULSE 43–61; RESP 17–22; TEMP 97.1–98.8; O2SAT 97–100
[2024-09-05] MEDS: ONDANSETRON HCL 4 MG/2 ML VIAL IV PRN (01:18)
--- NOTE | 2024-09-05 13:46 | DVHPN2 ---
Reviewed: Care Plan, H&P, Labs, Medications, Previous Orders, Radiology Changes from previous H/P or p: No Changes General: Per HPI Eyes: No Pain, No Vision change, No Conjunctivae inflammation, No Eyelid inflammation, No Other, No Redness ENT: No Ear pain, No Ear discharge, No Nose pain, No Nose discharge, No Nose congestion, No Mouth pain, No Mouth swelling, No Throat pain, No Throat swelling, No Other Cardiovascular: No Chest Pain, No Palpitations, No Orthopnea, No Paroxysmal Noc. Dyspnea, No Edema, No Lt Headedness, No Other Respiratory: No Cough, No Dry, No Shortness of breath, No SOB with excertion, No Wheezing, No Hemoptysis, No Pleuritic Pain, No Sputum, No Other Gastrointestinal: No Nausea, No Vomiting, No Abdominal Pain, No Diarrhea, No Constipation, No Melena, No Hematochezia, No Other Genitourinary: Dysuria, Frequency; No Incontinence, No Hematuria, No Retention, No Other Musculoskeletal: No other, No neck pain, No shoulder pain, No arm pain; back pain (Left flank pain); No hand pain, No leg pain, No foot pain Skin: No Rash, No Lesions, No Jaundice, No Bruising, No Other Objective Vitals Vital Signs Date Time Temp Pulse Resp B/P (MAP) Pulse Ox O2 Delivery O2 Flow Rate FiO2 09/05/24 09:00 98.3 43 19 110/61 (77) 97 98.3 09/05/24 07:45 Room Air* 0 21 Intake/Output Intake and Output 09/05/24 07:00 Intake Total 870 ml Balance 870 ml Intake Oral 820 ml IV Total 50 ml # Voids 2 # Bowel Movements 1 Medications Current Medications Medications Dose Ordered Sig/Cuong Route Start Time Stop Time Status Last Admin Dose Admin Ondansetron HCl 4 mg Q4HP PRN IV 09/03/24 12:30 09/05/24 08:43 4 MG Docusate Sodium 100 mg BIDPRN PRN PO 09/03/24 12:30 Acetaminophen 650 mg Q6HP PRN PO 09/03/24 12:30 Ceftriaxone Sodium 50 ml @ 100 mls/hr DAILY@09 IV 09/04/24 09:00 09/05/24 08:43 100 MLS/HR Ketorolac Tromethamine 15 mg Q6HPRN PRN IV 09/03/24 12:30 09/08/24 12:29 09/05/24 10:58 15 MG Laboratory Results Laboratory Tests 09/04/24 05:47 Urinalysis Test 09/03/24 06:51 Urine Color Colorless (Yellow) Urine Clarity Turbid (Clear) H Urine pH 7.0 (5.0-9.0) Urine Specific [place] 1.015 (1.001-1.035) Urine Protein Negative (Negative) Urine Ketones 2+ (Negative) H Urine Blood Negative /uL (Negative) Urine Nitrite 1+ (Negative) H Urine Bilirubin Negative (Negative) Urine Urobilinogen Normal mg/dL (Negative) Urine Leukocyte Esterase 2+ /uL (Negative) Urine RBC 1 /hpf (0 - 4) Urine Microscopic WBC 25 /HPF (0-5) H Urine Squamous Epithelial Cells Mod /hpf (<5) Urine Bacteria Few /hpf (None Seen) H Urine Glucose Normal mg/dL (Normal) Microbiology Microbiology Date/Time Source Procedure Growth Status 09/03/24 19:02 Blood Blood Culture - Preliminary NO GROWTH AFTER 24 HOURS OF INCUBATION. Resulted 09/03/24 12:23 Voided Urine Urine Culture - Final Complete Assessment/Plan Assessment/Plan Apurva Conteh is a 28-year-old female with past medial history renal cancer, seizures-last seizure 2 years ago and not on any medications, and anxiety, who came to the hospital for flank pain. Patient states she has been experiencing flank pain for a couple days, as well as foul smelling urine. She tried staying at home and waiting it out, but her symptoms were worsening, prompting her to come to the hospital. Complicated urinary tract infection, Possible pyelonephritis, Leukocytosis, Possible urosepsis, sepsis with UTI nausea/vomiting 09/04/2024 continue with IV Abx pending urinalysis, sensitivity 09/05/2024 pt seen at bedside doing better still nauseated sensitivity pending Plan discussed with: Patient Date of Service: Sep 05, 2024 Billing Provider: KORINA CHATTERJEE DO Common Visit Codes: [id number] INP/OBS CARE(HIGH) KORINA CHATTERJEE DO Sep 05, 2024 13:46
[2024-09-06 01:00] VITALS: BP 119/74; PULSE 61; RESP 20; TEMP 98.1; O2SAT 100
[2024-09-06 05:00] VITALS: BP 104/61; PULSE 61; RESP 20; TEMP 98.4; O2SAT 98
[2024-09-06 08:00] VITALS: PULSE 50; RESP 1; O2SAT 100
[2024-09-06 09:00] VITALS: BP 110/56; PULSE 50; RESP 17; TEMP 98.9; O2SAT 100
[2024-09-06 13:00] VITALS: BP 101/59; PULSE 60; RESP 17; TEMP 99; O2SAT 100
[2024-09-06] MEDS ORDERED: CEPH250C PO (16:14)
--- NOTE | 2024-09-06 16:16 | DVHDS2 ---
Discharge Summary Date of Admission Sep 03, 2024 at 12:17 Date of Discharge: Sep 06, 2024 Labs/Diagnostic Data: Laboratory Results Test 09/04/24 05:47 09/03/24 12:23 09/03/24 11:28 09/03/24 06:51 White Blood Count 12.2 10^3/uL (4.4-10.8) Red Blood Count 3.99 10^6/uL (4.0-5.20) Hemoglobin 12.5 g/dL (12.2-16.2) Hematocrit 35.7 % (36.0-46.0) Mean Corpuscular Volume 89.4 fL (80.0-100.0) Mean Corpuscular Hemoglobin 31.2 pg (28.0-32.0) Mean Corpuscular Hemoglobin Concent 34.9 g/dL (32.0-36.0) Red Cell Distribution Width 13.3 % (11.8-14.3) Platelet Count 204 10^3/uL (140-450) Mean Platelet Volume 9.2 fL (6.9-10.8) Neutrophils (%) (Auto) 79.2 % (37.0-80.0) Lymphocytes (%) (Auto) 14.0 % (10.0-50.0) Monocytes (%) (Auto) 6.1 % (0.0-12.0) Eosinophils (%) (Auto) 0.4 % (0.0-7.0) Basophils (%) (Auto) 0.3 % (0.0-2.0) Neutrophils # (Auto) 9.6 10 ^3/uL (1.6-8.6) Lymphocytes # (Auto) 1.7 10 ^3/uL (0.4-5.4) Monocytes # (Auto) 0.7 10 ^3/uL (0-1.3) Eosinophils # (Auto) 0 10 ^3/uL (0-0.8) Basophils # (Auto) 0 10 ^3/uL (0-0.2) Nucleated Red Blood Cells 0.0 % Sodium Level 140 mmol/L (136-145) Potassium Level 3.6 mmol/L (3.5-5.1) Chloride Level 109 mmol/L (98-107) Carbon Dioxide Level 19 mmol/L (20-31) Anion Gap 12 (5-15) Blood Urea Nitrogen 10 mg/dL (9-23) Creatinine 0.65 mg/dL (0.550-1.02) Glomerular Filtration Rate Calc 122 mL/min (>90) BUN/Creatinine Ratio 15.4 (10.0-20.0) Serum Glucose 84 mg/dL (74-106) Calcium Level 9.3 mg/dL (8.7-10.4) Total Bilirubin 0.5 mg/dL (0.2-1.0) Aspartate Amino Transferase (AST) 14 U/L (13-40) Alanine Aminotransferase (ALT) 10 U/L (7-40) Alkaline Phosphatase 50 U/L (46-116) Total Protein 5.8 g/dL (5.7-8.2) Albumin 3.5 g/dL (3.2-4.8) Urine Opiates Screen Neg (NEGATIVE) Urine Fentanyl Screen Pos (NEGATIVE) Urine Barbiturates Screen Neg (NEGATIVE) Urine Phencyclidine Screen Neg (NEGATIVE) Urine Amphetamines Screen Pos (NEGATIVE) Urine Benzodiazepines Screen Pos (NEGATIVE) Urine Cocaine Screen Neg (NEGATIVE) Urine Cannabinoids Screen Pos (NEGATIVE) Lactic Acid Level 0.7 mmol/L (0.4-2.0) Urine Color Colorless (Yellow) Urine Clarity Turbid (Clear) Urine pH 7.0 (5.0-9.0) Urine Specific [place] 1.015 (1.001-1.035) Urine Protein Negative (Negative) Urine Ketones 2+ (Negative) Urine Blood Negative /uL (Negative) Urine Nitrite 1+ (Negative) Urine Bilirubin Negative (Negative) Urine Urobilinogen Normal mg/dL (Negative) Urine Leukocyte Esterase 2+ /uL (Negative) Urine RBC 1 /hpf (0 - 4) Urine Microscopic WBC 25 /HPF (0-5) Urine Squamous Epithelial Cells Mod /hpf (<5) Urine Bacteria Few /hpf (None Seen) Urine Glucose Normal mg/dL (Normal) Other Laboratory Tests 09/04/24 05:47 Brief Hx & Hospital Course: Apurva Conteh is a 28-year-old female with past medial history renal cancer, seizures-last seizure 2 years ago and not on any medications, and anxiety, who came to the hospital for flank pain. Patient states she has been experiencing flank pain for a couple days, as well as foul smelling urine. She tried staying at home and waiting it out, but her symptoms were worsening, prompting her to come to the hospital. Complicated urinary tract infection, Possible pyelonephritis, Leukocytosis, Possible urosepsis, sepsis with UTI nausea/vomiting 09/04/2024 continue with IV Abx pending urinalysis, sensitivity 09/05/2024 pt seen at bedside doing better still nauseated sensitivity pending 09/06/2024 symptoms improved discharge to home Condition at Discharge: Fair Final Diagnosis/Problems List see above Discharge Disposition: Home Discharge Instruct/Medications Diet: Cardiac 2g Na,low cholest Activity: No Restrictions, As Tolerated Scheduled Cephalexin (Keflex Capsule), 2 CAP PO BID Doxycycline Hyclate (Doxycycline Hyclate), 1 TAB PO BID Lorazepam (Ativan Tablet), 1 TAB PO BID Metronidazole (Flagyl), 1 TAB PO BID Nitrofurantoin Monohydrate Mac (Macrobid), 100 MG PO BID Miscellaneous Medications Ibuprofen (Childrens Ibuprofen), (Reported) [Ventolin], (Reported) Discharge Statement: "Patient was advised to return to the ER or call 911 if any headaches, dizziness, shortness of breath, chest pain, abdominal pain, bleeding, fevers, or worsening of medical condition. Patient was counseled about treatment plan, medications, possible side effects, patientverbalized understanding. All questions were answered to the best of my ability. This discharge took greater then 30 minutes in planning, reviewing documentation, counseling the patient, and discussing with other team members." ASSESSMENT ASSESSMENT Assessment Date of Service: Sep 06, 2024 Billing Provider: KORINA CHATTERJEE DO Common Visit Codes: [id number] INP/OBS CARE(HIGH) KORINA CHATTERJEE DO Sep 06, 2024 16:16
[2024-09-06 17:00] VITALS: BP 101/54; PULSE 46; RESP 18; TEMP 98.5; O2SAT 99
== END 2024-09-06 18:35 | disposition home or self-care (01) | DRG 720 ==
LOC: EDUNIT# 05:53 → EDBD 05:53 → ER 05:53 → OVERFLOW 12:17 → EAST 14:13
PROVIDERS: ADMIT Internal Medicine; ATTEND Internal Medicine
DX: A41.9 Sepsis, unspecified organism (principal); N12 Tubulo-interstitial nephritis, not specified as acute or chronic; J45.909 Unspecified asthma, uncomplicated; F41.9 Anxiety disorder, unspecified; Z90.5 Acquired absence of kidney; Z87.891 Personal history of nicotine dependence; Z85.528 Personal history of other malignant neoplasm of kidney; Z90.49 Acquired absence of other specified parts of digestive tract; Z88.5 Allergy status to narcotic agent; D72.829 Elevated white blood cell count, unspecified
CPT/HCPCS: 36415; 80048; 80053; 80307; 81001; 83605; 85025; 87040; 87086; 96361; 96374; 99291; 99292; G0378; J1885; J2405

== ENCOUNTER 2024-11-27 19:23 | Inpatient (IN) | payer MEDICAID ==
[~2024-11-27] VITALS: Ht 167.6 cm; Wt 75.1 kg
[~2024-11-27 19:23] MED LIST changes: +CEPH250C PO
[2024-11-27] MEDS ORDERED: HYDROmorphone HCL 2 MG/ML VL/or syr IM ONE (20:00)
[2024-11-27] MEDS ORDERED: ONDANSETRON ODT 4 MG TAB PO ONE (20:00)
[2024-11-27 20:33] LABS: Hematocrit 26.7 % (36.0-46.0); Hemoglobin 9.1 g/dL (12.2-16.2); Mean Corpuscular Hemoglobin 30.6 pg (28.0-32.0); Mean Corpuscular Volume 90.1 fL (80.0-100.0); Nucleated Red Blood Cells % 0.1 %
[2024-11-27 20:40] LABS: Chloride 101 mmol/L (98-107); Potassium 4.9 mmol/L (3.5-5.1)
[2024-11-27 20:41] LABS: Anion Gap 8 (5-15); Carbon Dioxide 24 mmol/L (20-31)
[2024-11-27 20:42] LABS: Calcium 9.4 mg/dL (8.7-10.4)
[2024-11-27 20:46] LABS: Glucose 80 mg/dL (74-106)
[2024-11-27 20:47] LABS: BUN/Creatinine Ratio 10.2 (10.0-20.0); Blood Urea Nitrogen 13 mg/dL (9-23); Lipase 22 U/L (12-53); Sodium 133 mmol/L (136-145)
--- NOTE | 2024-11-27 20:47 | ED.PDOC ---
GI ASSESSMENT HPI Comments This is a 29 year old female presenting to the ED with chief complaint of diffuse bilateral lower abdominal pain radiating towards her bilateral flank regions over the past five days. Patient reports that she has been experiencing bilateral lower abdominal pain with associated rigidity, bilateral flank pain, nausea, and vomiting. Patient denies any diarrhea, fever, chills, dysuria, hematuria, or chest pain. Patient has been of the history is significant for a right-sided nephrectomy. Vital signs were stable on arrival. Chief Complaint: Abdominal Pain Time Seen by MD: 20:44 Primary Care Provider: NINE Reviewed Notes: Nurses Notes, Medications, Allergies Allergies: Coded Allergies: NO KNOWN ALLERGIES (Unverified , 11/27/24) Home Meds Active Scripts Cephalexin (KEFLEX CAPSULE) 250 Mg Cp, 2 CAP PO BID for 5 Days, #20 CAP Prov:KORINA CHATTERJEE DO 09/06/24 Nitrofurantoin Monohydrate Mac (Macrobid) 100 Mg Cap, 100 MG PO BID for 7 Days, #14 CAP Prov:ALEXANDRU JOSE MD 08/08/21 Lorazepam (ATIVAN TABLET) 0.5 Mg Tb, 1 TAB PO BID for 3 Days, #6 TAB Prov:ALEXANDRU JOSE MD 08/08/21 Metronidazole (Flagyl) 500 Mg Tab, 1 TAB PO BID, #14 TAB 0 Refills Do not consume alcohol while taking this medication. Prov:GYPSY LOPEZ MD 06/17/21 Doxycycline Hyclate (DOXYCYCLINE HYCLATE) 100 Mg Tab, 1 TAB PO BID, #14 TAB 0 Refills Prov:GYPSY LOPEZ MD 06/17/21 Reported Medications [Ventolin] No Conflict Check 11/30/09 Ibuprofen (Childrens Ibuprofen) 40 Mg/Ml Edson 11/30/09 Information Source: Patient Mode of Arrival: Ambulatory Timing: Days Duration: Since onset Prehospital treatment: None Quality: Sharp Vomitus: Watery Stool: Normal Severity: Moderate Recent: None Recent Hx of: None Pain Location: Diffuse, RLQ, LLQ, Suprapubic Modifying Factors: Nothing Associated sign and symptoms: Nausea, Vomiting, Abdominal Pain Past Medical History PAST MEDICAL HISTORY: Anxiety, Asthma, Cancer, Seizures Surgical History: Denies all surgeries Surgical History (Other): Right nephrectomy 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 Family History Family History: Reviewed,noncontributory to illness Family History (Other): family history positive for seizures in father Social History Smoker: Non-Smoker Alcohol: Denies ETOH Use Drugs: Denies Drug Use Lives In: Home Constitutional: denies: chills, diaphoresis, fatigue, fever, malaise, sweats, weakness, others EENTM: denies: blurred vision, double vision, ear bleeding, ear discharge, ear drainage, ear pain, ear ringing, eye pain, eye redness, hearing loss, mouth pain, mouth swelling, nasal discharge, nose bleeding, nose congestion, nose pain, photophobia, tearing, throat pain, throat swelling, voice changes, others Respiratory: denies: cough, hemoptysis, orthopnea, SOB at rest, shortness of breath, SOB with excertion, stridor, wheezing, others Cardiovascular: denies: chest pain, dizzy spells, diaphoresis, Dyspnea on exertion, edema, irregular heart beat, left arm pain, lightheadedness, palpitations, PND, syncope, others Gastrointestinal: reports: abdominal pain, nausea, vomiting; denies: abdomen distended, blood streaked bowels, constipated, diarrhea, dysphagia, difficulty swallowing, hematemesis, melena, poor appetite, poor fluid intake, rectal bleeding, rectal pain, others Genitourinary: reports: flank pain; denies: abnormal vagina bleeding, burning, dyspareunia, dysuria, frequency, hematuria, incontinence, pain, , vagina discharge, urgency, others Neurological: denies: dizziness, fainting, headache, left sided numbness, left sided weakness, numbness, paresthesia, pre-existing deficit, right sided numbness, right sided weakness, seizure, speech problems, tingling, tremors, weakness, others Musculoskeletal: denies: back pain, gout, joint pain, joint swelling, muscle pain, muscle stiffness, neck pain, others Integumetry: denies: bruises, change in color, change in hair/nails, dryness, laceration, lesions, lumps, rash, wounds, others Allergic/Immunocompromised: denies: Difficulty Healing, Frequent Infections, Hives, Itching, others Hematologic/Lymphatic: denies: anemia, blood clots, easy bleeding, easy bruising, swollen glands, others Endocrine: denies: excessive hunger, excessive sweating, excessive thirst, excessive urination, flushing, intolerance to cold, intolerance to heat, unexplained weight gain, unexplained weight loss, others Psychiatric: denies: anxiety, bipolar disorder, depression, hopeless, panic disorder, schizophrenia, sleepless, suicidal, others All Other Systems: Reviewed and Negative Physical Exam General Appearance: Moderate Distress (Patient personally in moderate distress at time of evaluation due to belly and flank pain concerns.), Normal HEENT: Normal ENT Inspection, Pharynx Normal, TMs Normal Neck: Full Range of Motion, Non-Tender, Normal, Normal Inspection Respiratory: Chest Non-Tender, Lungs Clear, No Accessory Muscle Use, No Respiratory Distress, Normal Breath Sounds Cardiovascular: No Edema, No JVD, No Murmur, No Gallop, Normal Peripheral Pulses, Regular Rate/Rhythm Breast Exam: Deferred Gastrointestinal: Other (Patient has a rigid bilateral lower abdomen that dis plays tenderness to palpation throughout. No erythema or edema. No sign of trauma.) Genitalia: Deferred Pelvic: Deferred Rectal: Deferred Extremities: No calf tenderness, Normal inspection Neurologic: Alert Cerebellar Function: NOT DONE Reflexes: NOT DONE Skin: Dry, Normal Color, Warm Lymphatic: No Adenopathy Was a procedure done? Was a procedure done?: No GI differential Dx Differential Diagnosis: Bowel Obstruction, Cholangitis, Cholecystitis, Constipation, Gastritis/PUD, Gastroenteritis, Inflammatory BD, Pancreatitis, UTI X-Ray, Labs, Meds, VS Vital Signs Date Time Temp Pulse Resp B/P (MAP) Pulse Ox O2 Delivery O2 Flow Rate FiO2 11/27/24 21:51 98.8 65 18 125/79 (94) 97 98.8 11/27/24 21:51 65 18 97 Room Air* 0 21 11/27/24 21:35 88 18 141/89 11/27/24 19:27 98.3 95 16 122/76 100 98.3 Lab Test 11/27/24 20:19 11/27/24 20:08 Range/Units Urine Color Yellow Yellow Urine Clarity Turbid H Clear Urine pH 5.5 5.0-9.0 Urine Specific [place] 1.007 1.001-1.035 Urine Protein Negative Negative Urine Ketones Negative Negative Urine Blood Trace H Negative /uL Urine Nitrite 2+ H Negative Urine Bilirubin Negative Negative Urine Urobilinogen 3 H Negative mg/dL Urine Leukocyte Esterase 3+ Negative /uL Urine RBC 3 0 - 4 /hpf Urine WBC Clumps Present None Seen /hpf Urine Microscopic WBC 233 H 0-5 /HPF Urine Squamous Epithelial Cells Few <5 /hpf Urine Bacteria Few H None Seen /hpf Urine Glucose Normal Normal mg/dL White Blood Count 17.4 H 4.4-10.8 10^3/uL Red Blood Count 2.97 L 4.0-5.20 10^6/uL Hemoglobin 9.1 L 12.2-16.2 g/dL Hematocrit 26.7 L 36.0-46.0 % Mean Corpuscular Volume 90.1 80.0-100.0 fL Mean Corpuscular Hemoglobin 30.6 28.0-32.0 pg Mean Corpuscular Hemoglobin Concent 33.9 32.0-36.0 g/dL Red Cell Distribution Width 13.5 11.8-14.3 % Platelet Count 442 140-450 10^3/uL Mean Platelet Volume 7.4 6.9-10.8 fL Neutrophils (%) (Auto) 81.8 H 37.0-80.0 % Lymphocytes (%) (Auto) 12.0 10.0-50.0 % Monocytes (%) (Auto) 5.2 0.0-12.0 % Eosinophils (%) (Auto) 0.7 0.0-7.0 % Basophils (%) (Auto) 0.3 0.0-2.0 % Neutrophils # (Auto) 14.2 H 1.6-8.6 10 ^3/uL Lymphocytes # (Auto) 2.1 0.4-5.4 10 ^3/uL Monocytes # (Auto) 0.9 0-1.3 10 ^3/uL Eosinophils # (Auto) 0.1 0-0.8 10 ^3/uL Basophils # (Auto) 0 0-0.2 10 ^3/uL Nucleated Red Blood Cells 0.1 % Sodium Level 133 L 136-145 mmol/L Potassium Level 4.9 3.5-5.1 mmol/L Chloride Level 101 98-107 mmol/L Carbon Dioxide Level 24 20-31 mmol/L Anion Gap 8 5-15 Blood Urea Nitrogen 13 9-23 mg/dL Creatinine 1.27 H 0.550-1.02 mg/dL Glomerular Filtration Rate Calc 58 >90 mL/min BUN/Creatinine Ratio 10.2 10.0-20.0 Serum Glucose 80 74-106 mg/dL Lactic Acid Level 0.7 0.4-2.0 mmol/L Calcium Level 9.4 8.7-10.4 mg/dL Troponin I High Sensitivity < 3 L </=34 ng/L Lipase 22 12-53 U/L Beta HCG, Quantitative 66676.0 H 1.5-4.2 mIU/mL Current Medications Medications (Trade) Dose Ordered Sig/Cuong Route Start Time Stop Time Status Last Admin Hydromorphone HCl (Dilaudid Injection) 0.5 mg ONCE ONCE IV 11/27/24 21:15 11/27/24 21:18 DC 11/27/24 21:35 Ondansetron HCl (Zofran) 4 mg ONCE ONCE IV 11/27/24 21:15 11/27/24 21:18 DC 11/27/24 21:33 X-Ray, Labs, Meds, VS Comment All studies performed in the ED were evaluated by me personally. Serum studies [place] [id number], anemia, hyponatremia[place] [address] as well as a significant urinary tract infection. CT of the abdomen was immediately change through a OB ultrasound which confirmed a 24 week . With the lack of OB support that the patient has received as well as her near uroseptic state, patient will be admitted for management of her multiple comorbidities as well as OB consultation. I have already discussed the case with OB and the lead project engineer and therefore, they will moderate with the patient during her stay. Time of 1ST Reevaluation: 22:58 Reevaluation 1ST: Improved Consultation: PCP, signal constructor Patient Education/Counseling: Diagnosis, Treatment Family Education/Counseling: Diagnosis, Treatment, No Family Present SEPSIS Sepsis Screen Date sepsis recognized/suspect: Nov 27, 2024 Time Sepsis recognized/suspect: 1926 Recent Procedure: No On Antibiotic Therapy: No Respiratory Rate >20: No Heart Rate >90: Yes Temp<36 C (96.8 F) or >38.3 C: No SBP <90 or MAP <65 mmHG: No New Acute Mental Status Change: No Is the patient on CPAP, BIPAP,: No Physician Orders Troponin-I Hs (11/28/24 00:00) Troponin-I Hs (11/28/24 03:00) Troponin-I Hs (11/28/24 06:00) [place]ock Iv (11/27/24 19:47) Ob Ultrasound Comp Gtr 14 Wks (11/27/24 21:54) Ceftriaxone 1gm/50ml (Rocephin) (11/27/24 23:00) Vital Signs Date Time Temp Pulse Resp B/P (MAP) Pulse Ox O2 Delivery O2 Flow Rate FiO2 11/27/24 21:51 98.8 65 18 125/79 (94) 97 98.8 11/27/24 21:51 65 18 97 Room Air* 0 21 11/27/24 21:35 88 18 141/89 11/27/24 19:27 98.3 95 16 122/76 100 98.3 Laboratory Tests Test 11/27/24 20:08 Lactic Acid Level 0.7 mmol/L (0.4-2.0) White Blood Count 17.4 10^3/uL (4.4-10.8) H Medications Medications Dose Ordered Sig/Cuong Route Start Time Stop Time Status Last Admin Dose Admin Hydromorphone HCl 0.5 mg ONCE ONCE IV 11/27/24 21:15 11/27/24 21:18 DC 11/27/24 21:35 Ondansetron HCl 4 mg ONCE ONCE IV 11/27/24 21:15 11/27/24 21:18 DC 11/27/24 21:33 Departure 1 Departure Time of Disposition: 22:58 Impression: Primary Impression: Additional Impressions: Urinary tract infection Anemia Hyponatremia Disposition: ADMITTED INPATIENT Condition: Fair Discharged With: Self, Friend Critical Care Note Critical Care Time?: No Stability Stability form required: No Heart Score Heart Score: Heart Score Response (Comments) Value History N/A 0 EKG N/A 0 Age N/A 0 Risk Factors N/A 0 Troponin N/A 0 Total 0 I personally scribed for YURI LAUREANO PAC ([email or web address]) on 11/27/24 at 20:47. E lectronically submitted by Yariel Sommers ([email or web address]). YURI LAUREANO PAC Nov 27, 2024 20:47
[2024-11-27 20:56] LABS: Urine Protein, UAD Negative (Negative); Urine WBC Clumps PRESENT /hpf (None Seen)
[2024-11-27] MEDS: ONDANSETRON HCL 4 MG/2 ML VIAL IV ONE (21:33)
[2024-11-27] MEDS: HYDROmorphone HCL 2 MG/ML VL/or syr IV ONE (21:35)
[2024-11-27 21:51] VITALS: PULSE 65; RESP 18; O2SAT 97
--- NOTE | 2024-11-27 23:00 | DVH ---
OB ULTRASOUND, LIMITED CLINICAL INDICATION: Bilateral lower abdominal pain TECHNIQUE: Multiple grayscale ultrasound and M-mode images were obtained of the pelvis for evaluation of intrauterine . COMPARISON: None FINDINGS: A single living fetus is seen in cephalic presentation. Biparietal diameter: 6.68 cm (26 weeks, 6 days) Head Circumference: 24.64 cm (26 weeks, 5 days) Abdomen Circumference: 22.75 cm (27 weeks, 1 days) Femur Length: 5.07 cm (27 weeks, 1 days) Estimated weight: 1027 grams (+/- 154 grams). Placenta: Posterior. Amniotic fluid: Visibly normal. Three-vessel cord: Present. Cord insertion: Normal. heart rate: 146 beats/min. Cervix is 1.9 cm and closed. A complete anatomic survey was not performed on this exam. A 4-chamber heart, bilateral kidneys, stom ach, and urinary bladder are grossly unremarkable. IMPRESSION: 1. Single living intrauterine with an estimated gestational age of 27 weeks, 0 days, kimberly esponding to an estimated date of delivery of 02/26/2025.
[2024-11-28] MEDS ORDERED: DOCUSATE SOD 100 MG CAP PO PRN (02:00)
--- NOTE | 2024-11-28 02:52 | DVHHP2 ---
History of Present Illness Reason for Visit: History of Present Illness The patient is a 29-year-old female with past medical history of asthma, anxiety, cancer, seizures, and ovarian cysts who presented to [facility] ED with complaint of diffuse bilateral lower abdominal pain for the past 5 days. Patient reports that she has been experiencing diffuse abdominal pain, radiating towards her bilateral flank region, associated with rigidity, nausea, and vomiting. Patient was seen and evaluated in the ED, laboratory data shows WBC 17.4, hemoglobin 9.1, hematocrit 26.1, platelets 442, sodium 133, potassium 4.9, BUN 13, creatinine 1.27, glucose, calcium 9.4, troponin 3, lipase 22, hCG 30183.0, blood pressure 129/77, heart rate 102, temperature 98.7 F, O2 saturation 98% on oxygen. Obstetric ultrasound revealing single living intrauterine with an estimated gestational age of 27 weeks, 0 days, corresponding to an estimated date of delivery of February 26, 2025. Urinalysis positive for urinary tract infection. Patient was started on IV antibiotic regimen Rocephin, please see medication orders section in the computer. On my assessment, patient denied chest pain, no headache, dizziness, diaphoresis, shortness of breaths, no diarrhea, nausea or vomiting, no fever, chills. Patient was admitted for further evaluation and medical management. Past Medical History Anxiety, Asthma, Cancer, Seizures, Ovarian Cysts Past Surgical History Right nephrectomy Family History Reviewed, noncontributory to the management of this case. Past Social History The patient lives at home, denies smoking, alcohol or illicit drugs abuse. Review of Systems Constitutional: Yes: Weakness; No: Fever, Chills, Sweats, Malaise, Other Eyes: No: Pain, Vision change, Conjunctivae inflammation, Eyelid inflammation, Other, Redness ENT: No: Ear pain, Ear discharge, Nose pain, Nose discharge, Nose congestion, Mouth pain, Mouth swelling, Throat pain, Throat swelling, Other Respiratory: No: Cough, Dry, Shortness of breath, SOB with excertion, Wheezing, Hemoptysis, Pleuritic Pain, Sputum, Wheezing, Other Cardiovascular: No: Chest Pain, Palpitations, Orthopnea, Paroxysmal Noc. Dyspnea, Edema, Lt Headedness, Other Gastrointestinal: Nausea, Vomiting, Abdominal Pain; No: Diarrhea, Constipation, Melena, Hematochezia, Other Genitourinary: No Dysuria, No Frequency, No Incontinence, No Hematuria, No Retention; Other (Flank pain) Musculoskeletal: No: other, neck pain, shoulder pain, arm pain, back pain, hand pain, leg pain, foot pain Skin: No: Rash, Lesions, Jaundice, Bruising, Other Neurological: No: Weakness, Numbness, Incoordination, Change in speech, Confusion, Seizures, Other Allergies: Coded Allergies: NO KNOWN ALLERGIES (Unverified , 11/27/24) Medications Current Medications Medications Dose Ordered Sig/Cuong Route Start Time Stop Time Status Last Admin Dose Admin Ceftriaxone Sodium 50 ml @ 100 mls/hr DAILY@09 IV 11/29/24 09:00 Sodium Chloride 1,000 ml @ 60 mls/hr [id number] IV 11/28/24 02:00 Ondansetron HCl 4 mg Q4HP PRN IV 11/28/24 02:00 Docusate Sodium 100 mg BIDPRN PRN PO 11/28/24 02:00 Acetaminophen 650 mg Q6HP PRN PO 11/28/24 02:00 Exam Vital Signs Vital Signs Date Time Temp Pulse Resp B/P (MAP) Pulse Ox O2 Delivery O2 Flow Rate FiO2 11/28/24 00:44 98.7 103 16 129/77 (94) 98 98.7 11/27/24 21:51 Room Air* 0 21 General Appearance: Alert, Oriented X3, Cooperative, No acute distress HEENT: Atraumatic, PERRLA, EOMI, Mucous membr. moist/pink Respiratory: Clear to auscultation, Normal air movement Cardiovascular: Regular rate, Normal S1, Normal S2, No murmurs Abdominal: Normal bowel sounds, Soft, No hepatospenomegaly, No masses, Other (Reports tenderness) Extremities: No clubbing, No cyanosis, No edema, Normal pulses, No tenderness/swelling Skin: No rashes, No breakdown, No significant lesion Neuro: Normal speech, Normal tone, Sensation intact, Cranial nerves 3-12 NL, Reflexes 2+, Other (Generalized weakness) Psych/Mental Status: Mental status NL, Mood NL Labs/Xrays Labs Test 11/27/24 20:19 11/27/24 20:08 Range/Units Urine Color Yellow Yellow Urine Clarity Turbid H Clear Urine pH 5.5 5.0-9.0 Urine Specific [place] 1.007 1.001-1.035 Urine Protein Negative Negative Urine Ketones Negative Negative Urine Blood Trace H Negative /uL Urine Nitrite 2+ H Negative Urine Bilirubin Negative Negative Urine Urobilinogen 3 H Negative mg/dL Urine Leukocyte Esterase 3+ Negative /uL Urine RBC 3 0 - 4 /hpf Urine WBC Clumps Present None Seen /hpf Urine Microscopic WBC 233 H 0-5 /HPF Urine Squamous Epithelial Cells Few <5 /hpf Urine Bacteria Few H None Seen /hpf Urine Glucose Normal Normal mg/dL White Blood Count 17.4 H 4.4-10.8 10^3/uL Red Blood Count 2.97 L 4.0-5.20 10^6/uL Hemoglobin 9.1 L 12.2-16.2 g/dL Hematocrit 26.7 L 36.0-46.0 % Mean Corpuscular Volume 90.1 80.0-100.0 fL Mean Corpuscular Hemoglobin 30.6 28.0-32.0 pg Mean Corpuscular Hemoglobin Concent 33.9 32.0-36.0 g/dL Red Cell Distribution Width 13.5 11.8-14.3 % Platelet Count 442 140-450 10^3/uL Mean Platelet Volume 7.4 6.9-10.8 fL Neutrophils (%) (Auto) 81.8 H 37.0-80.0 % Lymphocytes (%) (Auto) 12.0 10.0-50.0 % Monocytes (%) (Auto) 5.2 0.0-12.0 % Eosinophils (%) (Auto) 0.7 0.0-7.0 % Basophils (%) (Auto) 0.3 0.0-2.0 % Neutrophils # (Auto) 14.2 H 1.6-8.6 10 ^3/uL Lymphocytes # (Auto) 2.1 0.4-5.4 10 ^3/uL Monocytes # (Auto) 0.9 0-1.3 10 ^3/uL Eosinophils # (Auto) 0.1 0-0.8 10 ^3/uL Basophils # (Auto) 0 0-0.2 10 ^3/uL Nucleated Red Blood Cells 0.1 % Sodium Level 133 L 136-145 mmol/L Potassium Level 4.9 3.5-5.1 mmol/L Chloride Level 101 98-107 mmol/L Carbon Dioxide Level 24 20-31 mmol/L Anion Gap 8 5-15 Blood Urea Nitrogen 13 9-23 mg/dL Creatinine 1.27 H 0.550-1.02 mg/dL Glomerular Filtration Rate Calc 58 >90 mL/min BUN/Creatinine Ratio 10.2 10.0-20.0 Serum Glucose 80 74-106 mg/dL Lactic Acid Level 0.7 0.4-2.0 mmol/L Calcium Level 9.4 8.7-10.4 mg/dL Troponin I High Sensitivity < 3 L </=34 ng/L Lipase 22 12-53 U/L Beta HCG, Quantitative 77659.0 H 1.5-4.2 mIU/mL PATIENT: CARLOS CARRENO ACCT: [id number] UNIT: [id number] : 1995 LOC: ER ROOM / BED: / AGE / SEX: 29 / F ADM STATUS: REG ER SERVICE 2154 ORDERING PHYSICIAN: YURI LAUREANO PROCEDURE(s): OBUS - OB ULTRASOUND COMP GTR 14 WKS REASON: Bilateral lower abdominal pain ORDER NUMBER(s): [id number], ACCESSION NUMBER(s): [id number] OB ULTRASOUND, LIMITED CLINICAL INDICATION: Bilateral lower abdominal pain TECHNIQUE: Multiple grayscale ultrasound and M-mode images were obtained of the pelvis for evaluation of intrauterine . COMPARISON: None FINDINGS: A single living fetus is seen in cephalic presentation. Biparietal diameter: 6.68 cm (26 weeks, 6 days) Head Circumference: 24.64 cm (26 weeks, 5 days) Abdomen Circumference: 22.75 cm (27 weeks, 1 days) Femur Length: 5.07 cm (27 weeks, 1 days) Estimated weight: 1027 grams (+/- 154 grams). Placenta: Posterior. Amniotic fluid: Visibly normal. Three-vessel cord: Present. Cord insertion: Normal. heart rate: 146 beats/min. Cervix is 1.9 cm and closed. A complete anatomic survey was not performed on this exam. A 4-chamber heart, bilateral kidneys, stomach, and urinary bladder are grossly unremarkable. IMPRESSION: 1. Single living intrauterine with an estimated gestational age of 27 weeks, 0 days, corresponding to an estimated date of delivery of 02/26/2025. SEPSIS Sepsis Screen Date sepsis recognized/suspect: Nov 27, 2024 Time Sepsis recognized/suspect: 1927 Recent Procedure: No On Antibiotic Therapy: No Respiratory Rate >20: No Heart Rate >90: Yes Temp<36 C (96.8 F) or >38.3 C: No SBP <90 or MAP <65 mmHG: No New Acute Mental Status Change: No Is the patient on CPAP, BIPAP,: No Physician Orders Heplock Iv (11/27/24 19:47) Ob Ultrasound Comp Gtr 14 Wks (11/27/24 21:54) Urine Bacterial Culture (11/28/24 01:55) * Optical Glass Silverer Consultation (11/28/24 01:55) Complete Blood Count (11/28/24 04:00) Comprehensive Metabolic Panel (11/28/24 04:00) Allergies (11/28/24 01:55) Code Status (11/28/24 01:55) Sodium Chloride 0.9% (11/28/24 02:00) Oxygen Per Hour (11/28/24 01:55) Ondansetron Hcl (Zofran) (11/28/24 02:00) Docusate Sodium Capsule (Colace Capsule) (11/28/24 02:00) Fall Risk Precautions In Place QSHIFT (11/28/24 01:55) Complete Blood Count (11/29/24 04:00) Comprehensive Metabolic Panel (11/29/24 04:00) Condition: Serious (11/28/24 01:55) Acetaminophen Tablet (Tylenol Tablet) (11/28/24 02:00) Clear Liq Diet (11/28/24 Breakfast) Maintain Bed Rest (11/28/24 01:55) Sequential Compression Device (11/28/24 ) Ceftriaxone 1gm/50ml (Rocephin) (11/29/24 09:00) Type And Screen (11/28/24 02:51) Admit (11/28/24 02:51) Nitroglycerin Sublingual (Ntrostat Subli (11/28/24 03:00) Morphine Sulfate Injection (11/28/24 03:00) Stat Ekg For Chest Pain (11/28/24 02:51) Notify Md Of Changes From Base (11/28/24 02:51) Global Ceo For 24 Hours (11/28/24 02:51) Emergency Dysrhythmia Protocol (11/28/24 02:51) Rhythm Strips Once Every Shift (11/28/24 02:51) Oxygen By Nasal Cannula (11/28/24 02:51) Vital Signs Date Time Temp Pulse Resp B/P (MAP) Pulse Ox O2 Delivery O2 Flow Rate FiO2 11/28/24 00:44 98.7 103 16 129/77 (94) 98 98.7 11/27/24 21:51 98.8 65 18 125/79 (94) 97 98.8 11/27/24 21:51 65 18 97 Room Air* 0 21 11/27/24 21:35 88 18 141/89 11/27/24 19:27 98.3 95 16 122/76 100 98.3 Laboratory Tests Test 11/27/24 20:08 Lactic Acid Level 0.7 mmol/L (0.4-2.0) White Blood Count 17.4 10^3/uL (4.4-10.8) H Medications Medications Dose Ordered Sig/Cuong Route Start Time Stop Time Status Last Admin Dose Admin Hydromorphone HCl 0.5 mg ONCE ONCE IV 11/27/24 21:15 11/27/24 21:18 DC 11/27/24 21:35 0.5 MG Ondansetron HCl 4 mg ONCE ONCE IV 11/27/24 21:15 11/27/24 21:18 DC 11/27/24 21:33 4 MG Assessment/Plan Assessment/Plan Hyponatremia Generalized weakness Urinary tract infection Anemia, unspecified Acute abdominal pain Plan 1. Admit to telemetry unit 2. Breathing treatment 3. Pain control management 4. IV antibiotic management 5. Management of fluids and electrolytes 6. Consultation for OBGYN/hospitalist 7. Diagnostic test obstetric ultrasound 8. DVT prophylaxis on SCDs 9. Repeat labs CBC, CMP in a.m. 10. Home medication reviewed and reconciled 11. Continue with current medical management 12. Treatment plan discussed with patient and RN. Patient verbalized understanding. Plan discussed with: Patient, Other (RN) My Orders Orders - DAVINA PATHAK DNP Procedure Category Date Status Time Urine Bacterial BETTE 11/28/24 Logged Culture 01:55 * Optical Glass Silverer Consultation CONS 11/28/24 Transmitted 01:55 Complete Blood Count LAB 11/28/24 Logged 04:00 Comprehensive LAB 11/28/24 Logged Metabolic Panel 04:00 Allergies ESTELLA 11/28/24 In Process 01:55 Code Status CODE 11/28/24 Transmitted 01:55 Sodium Chloride 0.9% PHA 11/28/24 In Process 02:00 Oxygen Per Hour RT 11/28/24 Transmitted 01:55 Ondansetron Hcl PHA 11/28/24 In Process (Zofran) 02:00 Docusate Sodium PHA 11/28/24 In Process Capsule (Colace 02:00 Fall Risk Precautions ESTELLA 11/28/[address] 01:55 Complete Blood Count LAB 11/29/24 Verified 04:00 Comprehensive LAB 11/29/24 Verified Metabolic Panel 04:00 Condition: Serious ESTELLA 11/28/24 In Process 01:55 Acetaminophen Tablet PHA 11/28/24 In Process (Tylenol Tablet) 02:00 Clear Liq Diet DIET 11/28/24 Transmitted Breakfast Maintain Bed Rest ESTELLA 11/28/24 In Process 01:55 Sequential ESTELLA 11/28/24 In Process Compression Device Ceftriaxone 1gm/50ml PHA 11/29/24 In Process (Rocephin) 09:00 Type And Screen BBK 11/28/24 Verified 02:51 Admit ADMIT 11/28/24 Verified 02:51 Nitroglycerin [facility] 11/28/24 Verified Sublingual (Ntrostat 03:00 Morphine Sulfate PHA 11/28/24 Verified Injection 03:00 Stat Ekg For Chest [facility] 11/28/24 Verified Pain 02:51 Notify Md Of Changes [facility] 11/28/24 Verified From Base 02:51 Global Ceo For [facility] 11/28/24 Verified 24 Hours 02:51 Emergency Dysrhythmia [facility] 11/28/24 Verified Protocol 02:51 Rhythm Strips Once [facility] 11/28/24 Verified Every Shift 02:51 Oxygen By Nasal RT 11/28/24 Verified Cannula 02:51 Problem List: (1) (2) Hyponatremia (3) Generalized weakness (4) Anemia, unspecified (5) Urinary tract infection (6) Acute abdominal pain Date of Service: Nov 27, 2024 Billing Provider: DAVINA PATHAK DNP Common Visit Codes: [id number] INP/OBS CARE (HIGH) DAVINA PATHAK DNP Nov 28, 2024 02:52
[2024-11-28] MEDS ORDERED: NITROGLYCERIN 0.4 MG SL TAB SL PRN (03:00)
[2024-11-28] MEDS ORDERED: MORPHINE SULFATE INJ 2 MG/ml SYRG IV PRN (03:00)
[2024-11-28 04:15] VITALS: BP 101/57; PULSE 78; RESP 16; TEMP 97.9; O2SAT 100
[2024-11-28] MEDS: SODIUM CHLORIDE 0.9% 1,000 ML IV SCH (04:17)
[2024-11-28 06:03] LABS: Hemoglobin 7.8 g/dL (12.2-16.2); Nucleated Red Blood Cells % 0.0 %
[2024-11-28 06:06] LABS: Hematocrit 22.5 % (36.0-46.0); Mean Corpuscular Hemoglobin 31.2 pg (28.0-32.0); Mean Corpuscular Volume 89.6 fL (80.0-100.0)
[2024-11-28 06:23] LABS: Alanine Aminotransferase 13 U/L (7-40); Albumin 3.3 g/dL (3.2-4.8); Alkaline Phosphatase 150 U/L (46-116); Anion Gap 9 (5-15); BUN/Creatinine Ratio 9.7 (10.0-20.0); Bilirubin, Total 0.8 mg/dL (0.2-1.0); Blood Urea Nitrogen 14 mg/dL (9-23); Calcium 8.7 mg/dL (8.7-10.4); Carbon Dioxide 24 mmol/L (20-31); Chloride 102 mmol/L (98-107); Glucose 97 mg/dL (74-106); Potassium 4.6 mmol/L (3.5-5.1); Sodium 135 mmol/L (136-145); Total Protein 6.7 g/dL (5.7-8.2)
[2024-11-28] MEDS: ACETAMINOPHEN 325 MG TAB PO PRN (09:12)
--- NOTE | 2024-11-28 12:08 | DVHINCON2 ---
Date of service: Nov 28, 2024 Referring Physician hospitalist Reason for Consultation and sepsis History of Present Illness pt is female with edc of 02-26-25 EGA of 27wks admitted for pyelo/sepsis . pt has hx of kidney ca ,s/p right nephrectomy now with urosepsis.pt denies any vag bleeding or contractions .she has had no care.she is also anemic, Past Medical History seizures,renal ca,asthma,anxiety Past Surgical History right nephrectomy,appendectomy Family History na Social History previous fentanyl substance abuse,current tobacco use Patient Family History: Seizure disorder G8 FATHER Unknown family medical history G8 MOTHER Allergies: Coded Allergies: NO KNOWN ALLERGIES (Unverified , 11/27/24) Home Meds Active Scripts Cephalexin (KEFLEX CAPSULE) 250 Mg Cp, 2 CAP PO BID for 5 Days, #20 CAP Prov:KORINA CHATTERJEE DO 09/06/24 Nitrofurantoin Monohydrate Mac (Macrobid) 100 Mg Cap, 100 MG PO BID for 7 Days, #14 CAP Prov:ALEXANDRU JOSE MD 08/08/21 Lorazepam (ATIVAN TABLET) 0.5 Mg Tb, 1 TAB PO BID for 3 Days, #6 TAB Prov:ALEXANDRU JOSE MD 08/08/21 Metronidazole (Flagyl) 500 Mg Tab, 1 TAB PO BID, #14 TAB 0 Refills Do not consume alcohol while taking this medication. Prov:GYPSY LOPEZ MD 06/17/21 Doxycycline Hyclate (DOXYCYCLINE HYCLATE) 100 Mg Tab, 1 TAB PO BID, #14 TAB 0 Refills Prov:GYPSY LOPEZ MD 06/17/21 Reported Medications [Ventolin] No Conflict Check 11/30/09 Ibuprofen (Childrens Ibuprofen) 40 Mg/Ml Edson 11/30/09 Current Medications Current Medications Medications (Trade) Dose Ordered Sig/Cuong Route PRN Reason Start Time Stop Time Status Last Admin Ceftriaxone Sodium 50 ml @ 100 mls/hr DAILY@09 IV 11/29/24 09:00 Sodium Chloride 1,000 ml @ 60 mls/hr [id number] IV 11/28/24 02:00 11/28/24 04:17 Ondansetron HCl (Zofran) 4 mg Q4HP PRN IV NAUSEA / VOMITING 11/28/24 02:00 Docusate Sodium (Colace Capsule) 100 mg BIDPRN PRN PO FOR CONSTIPATION 11/28/24 02:00 Acetaminophen (Tylenol Tablet) 650 mg Q6HP PRN PO PAIN SCALE 1-3 OR TEMP>100.4 11/28/24 02:00 11/28/24 09:12 Nitroglycerin (Ntrostat Sublingual) 0.4 mg Q5MINP PRN SL FOR CHEST PAIN 11/28/24 03:00 Morphine Sulfate 2 mg Q30M PRN IV FOR CHEST PAIN 11/28/24 03:00 Review of Systems Constitutional: positive for fever, chill, weight loss HEENT: no eye pain, no hearing loss, no oral lesion, no scleral icterus Heart: no chest pain, no chest pressure Lung: no cough, no dyspnea with exertion Abdomen: see HPI : pain with urination, normal appearing urine Musculoskeletal: no joint pain, no muscle pain Neurological: no loss of sensation, no weakness in extremities Pysch: no depression, pos anxiety Derm: no rash, no jaundice Vital Signs Vital Signs Date Time Temp Pulse Resp B/P (MAP) Pulse Ox O2 Delivery O2 Flow Rate FiO2 11/28/24 09:12 101.0 11/28/24 04:15 78 16 101/57 (72) 100 11/27/24 21:51 Room Air* 0 21 Physical Exam HEENT: [pale conjuctivae] NECK: [nl] CARDIAC: [rrr] PULMONARY: [cta] ABDOMEN: []gravid,pos fh MUSCULOSKELETAL:pos cva tenderness bila pelvic- ext gent wnl,vag nl,no bleeding ,cx closed,uterus 27wks size,pos heart ext bilat edema 1+ Labs/Diagnostic Data Labs Test 11/28/24 05:10 11/27/24 20:19 11/27/24 20:08 Range/Units White Blood Count 15.4 H 4.4-10.8 10^3/uL Red Blood Count 2.51 L 4.0-5.20 10^6/uL Hemoglobin 7.8 L 12.2-16.2 g/dL Hematocrit 22.5 #L 36.0-46.0 % Mean Corpuscular Volume 89.6 80.0-100.0 fL Mean Corpuscular Hemoglobin 31.2 28.0-32.0 pg Mean Corpuscular Hemoglobin Concent 34.9 32.0-36.0 g/dL Red Cell Distribution Width 13.5 11.8-14.3 % Platelet Count 362 140-450 10^3/uL Mean Platelet Volume 7.4 6.9-10.8 fL Neutrophils (%) (Auto) 78.9 37.0-80.0 % Lymphocytes (%) (Auto) 11.5 10.0-50.0 % Monocytes (%) (Auto) 8.6 0.0-12.0 % Eosinophils (%) (Auto) 0.8 0.0-7.0 % Basophils (%) (Auto) 0.2 0.0-2.0 % Neutrophils # (Auto) 12.1 H 1.6-8.6 10 ^3/uL Lymphocytes # (Auto) 1.8 0.4-5.4 10 ^3/uL Monocytes # (Auto) 1.3 0-1.3 10 ^3/uL Eosinophils # (Auto) 0.1 0-0.8 10 ^3/uL Basophils # (Auto) 0 0-0.2 10 ^3/uL Nucleated Red Blood Cells 0.0 % Sodium Level 135 L 136-145 mmol/L Potassium Level 4.6 3.5-5.1 mmol/L Chloride Level 102 98-107 mmol/L Carbon Dioxide Level 24 20-31 mmol/L Anion Gap 9 5-15 Blood Urea Nitrogen 14 9-23 mg/dL Creatinine 1.45 H 0.550-1.02 mg/dL Glomerular Filtration Rate Calc 50 >90 mL/min BUN/Creatinine Ratio 9.7 L 10.0-20.0 Serum Glucose 97 74-106 mg/dL Calcium Level 8.7 8.7-10.4 mg/dL Total Bilirubin 0.8 0.2-1.0 mg/dL Aspartate Amino Transferase (AST) 18 13-40 U/L Alanine Aminotransferase (ALT) 13 7-40 U/L Alkaline Phosphatase 150 H 46-116 U/L Total Protein 6.7 5.7-8.2 g/dL Albumin 3.3 3.2-4.8 g/dL Urine Color Yellow Yellow Urine Clarity Turbid H Clear Urine pH 5.5 5.0-9.0 Urine Specific [place] 1.007 1.001-1.035 Urine Protein Negative Negative Urine Ketones Negative Negative Urine Blood Trace H Negative /uL Urine Nitrite 2+ H Negative Urine Bilirubin Negative Negative Urine Urobilinogen 3 H Negative mg/dL Urine Leukocyte Esterase 3+ Negative /uL Urine RBC 3 0 - 4 /hpf Urine WBC Clumps Present None Seen /hpf Urine Microscopic WBC 233 H 0-5 /HPF Urine Squamous Epithelial Cells Few <5 /hpf Urine Bacteria Few H None Seen /hpf Urine Glucose Normal Normal mg/dL Lactic Acid Level 0.7 0.4-2.0 mmol/L Troponin I High Sensitivity < 3 L </=34 ng/L Lipase 22 12-53 U/L Beta HCG, Quantitative 31445.0 H 1.5-4.2 mIU/mL Primary Diagnosis pyelonephritis with sepsis iup at 27wks with no care smoker anemai/kidney ds Plan recommend smoking to be stopped establish with [facility] for obseterical care daily q shift pt needs to monitor cervical lenght closely to avoid premature delivery as well as initating good care with no tobacco use will follow thank you for this consultation Plan discussed with: Patient Visit Coding OBGYN Date of Service: Nov 28, 2024 Billing Provider: KASI ANDRADE DO PUMP HOUSE OPERATOR Common Visit Codes: [id number] OBS CARE (HIGH) PUMP HOUSE OPERATOR Consultation Codes: [id number] CONSULT <110MIN KASI ANDRADE DO Nov 28, 2024 12:08
[2024-11-28 13:00] VITALS: BP 87/47; PULSE 60; RESP 12; TEMP 97.6; O2SAT 98
[2024-11-28 17:00] VITALS: BP 102/54; PULSE 68; RESP 14; TEMP 97.8; O2SAT 100
[2024-11-28] MEDS: DOCUSATE SOD 100 MG CAP PO SCH (22:00)
[2024-11-28 22:39] VITALS: BP 122/73; PULSE 78; RESP 18; TEMP 97.2; O2SAT 99
[2024-11-29] VITALS (8 sets, daily range): BP systolic 107–126; BP diastolic 55–81; PULSE 57–76; RESP 15–18; TEMP 97.1–98.4; O2SAT 96–100
[2024-11-29 06:46] LABS: Hemoglobin 8.3 g/dL (12.2-16.2)
[2024-11-29 06:49] LABS: Hematocrit 23.8 % (36.0-46.0); Mean Corpuscular Hemoglobin 31.5 pg (28.0-32.0); Mean Corpuscular Volume 90.5 fL (80.0-100.0); Nucleated Red Blood Cells % 0.1 %
[2024-11-29 07:04] LABS: Alanine Aminotransferase 14 U/L (7-40); Albumin 3.3 g/dL (3.2-4.8); Anion Gap 8 (5-15); BUN/Creatinine Ratio 11.0 (10.0-20.0); Blood Urea Nitrogen 15 mg/dL (9-23); Carbon Dioxide 25 mmol/L (20-31); Chloride 106 mmol/L (98-107); Glucose 85 mg/dL (74-106); Potassium 4.7 mmol/L (3.5-5.1); Sodium 139 mmol/L (136-145); Total Protein 6.7 g/dL (5.7-8.2)
[2024-11-29 07:05] LABS: Bilirubin, Total 0.6 mg/dL (0.2-1.0)
[2024-11-29 07:27] LABS: Alkaline Phosphatase 151 U/L (46-116); Calcium 8.6 mg/dL (8.7-10.4)
--- NOTE | 2024-11-29 14:49 | DVHPN2 ---
Subjective The patient seen and examined at bedside. Complains of flank pain. Reviewed: Care Plan, H&P, Labs, Medications, Previous Orders, Radiology Changes from previous H/P or p: No Changes Eyes: No Pain, No Vision change, No Conjunctivae inflammation, No Eyelid inflammation, No Other, No Redness ENT: No Ear pain, No Ear discharge, No Nose pain, No Nose discharge, No Nose congestion, No Mouth pain, No Mouth swelling, No Throat pain, No Throat swelling, No Other Cardiovascular: No Chest Pain, No Palpitations, No Orthopnea, No Paroxysmal Noc. Dyspnea, No Edema, No Lt Headedness, No Other Respiratory: No Cough, No Dry, No Shortness of breath, No SOB with excertion, No Wheezing, No Hemoptysis, No Pleuritic Pain, No Sputum, No Other Gastrointestinal: Nausea, Vomiting, Abdominal Pain; No Diarrhea, No Constipation, No Melena, No Hematochezia, No Other Genitourinary: No Dysuria, No Frequency, No Incontinence, No Hematuria, No Retention; Other (Flank pain) Musculoskeletal: No other, No neck pain, No shoulder pain, No arm pain, No back pain, No hand pain, No leg pain, No foot pain Skin: No Rash, No Lesions, No Jaundice, No Bruising, No Other Objective Vitals Vital Signs Date Time Temp Pulse Resp B/P (MAP) Pulse Ox O2 Delivery O2 Flow Rate FiO2 11/29/24 12:44 97.8 64 16 114/81 (92) 100 97.8 11/28/24 22:39 Room Air* 0 21 Intake/Output Intake and Output 11/29/24 07:00 Intake Total 1500 ml Balance 1500 ml Intake Oral 1500 ml # Voids 5 General Appearance: Alert, Oriented X3, Cooperative, No acute distress HEENT: Atraumatic, PERRLA, Mucous membr. moist/pink Neck: Supple Lungs: Clear to auscultation, Normal air movement Cardiovascular: Regular rate, Normal S1, Normal S2, No murmurs, Gallops Abdomen: Normal bowel sounds, Soft, No tenderness Neuro: Cranial nerves 3-12 NL Psych/Mental Status: Mental status NL Medications Current Medications Medications Dose Ordered Sig/Cuong Route Start Time Stop Time Status Last Admin Dose Admin Ceftriaxone Sodium 50 ml @ 100 mls/hr DAILY@09 IV 11/29/24 09:00 11/29/24 10:56 100 MLS/HR Sodium Chloride 1,000 ml @ 60 mls/hr [id number] IV 11/28/24 02:00 11/28/24 04:17 60 MLS/HR Ondansetron HCl 4 mg Q4HP PRN IV 11/28/24 02:00 Docusate Sodium 100 mg BIDPRN PRN PO 11/28/24 02:00 Acetaminophen 650 mg Q6HP PRN PO 11/28/24 02:00 11/28/24 09:12 650 MG Nitroglycerin 0.4 mg Q5MINP PRN SL 11/28/24 03:00 Morphine Sulfate 2 mg Q30M PRN IV 11/28/24 03:00 Docusate Sodium 100 mg BID PO 11/28/24 22:00 11/29/24 10:49 100 MG Laboratory Results Laboratory Tests 11/29/24 05:16 Chemistry Test 11/29/24 05:16 Albumin 3.3 g/dL (3.2-4.8) Calcium Level 8.6 mg/dL (8.7-10.4) L Total Protein 6.7 g/dL (5.7-8.2) LFT Test 11/29/24 05:16 Alanine Aminotransferase (ALT) 14 U/L (7-40) Alkaline Phosphatase 151 U/L (46-116) H Aspartate Amino Transferase (AST) 16 U/L (13-40) Total Bilirubin 0.6 mg/dL (0.2-1.0) Urinalysis Test 11/27/24 20:19 Urine Color Yellow (Yellow) Urine Clarity Turbid (Clear) H Urine pH 5.5 (5.0-9.0) Urine Specific [place] 1.007 (1.001-1.035) Urine Protein Negative (Negative) Urine Ketones Negative (Negative) Urine Blood Trace /uL (Negative) H Urine Nitrite 2+ (Negative) H Urine Bilirubin Negative (Negative) Urine Urobilinogen 3 mg/dL (Negative) H Urine Leukocyte Esterase 3+ /uL (Negative) Urine RBC 3 /hpf (0 - 4) Urine WBC Clumps Present /hpf (None Seen) Urine Microscopic WBC 233 /HPF (0-5) H Urine Squamous Epithelial Cells Few /hpf (<5) Urine Bacteria Few /hpf (None Seen) H Urine Glucose Normal mg/dL (Normal) Microbiology Microbiology Date/Time Source Procedure Growth Status 11/27/24 20:19 Voided Urine Urine Culture - Preliminary Resulted Labs and/or images reviewed: Labs reviewed by me Assessment/Plan Assessment/Plan Hyponatremia Generalized weakness Urinary tract infection Anemia, unspecified Acute abdominal pain Continue current management. Continue with IV antibiotic Rocephin waiting for ANODIZE MACHINE OPERATOR to see the patient. The patient did not have any care since she did not know she is . Will follow up with culture. Plan discussed with: Patient Date of Service: Nov 29, 2024 Billing Provider: JAMES TANG MD Common Visit Codes: [id number] INP/OBS CARE(HIGH) JAMES TANG MD Nov 29, 2024 14:49
[2024-11-29] MEDS: ONDANSETRON HCL 4 MG/2 ML VIAL IV PRN (17:17)
[2024-11-30 05:00] VITALS: BP 122/70; PULSE 54; RESP 18; TEMP 97.4; O2SAT 100
--- NOTE | 2024-11-30 23:43 | DVHDS2 ---
Discharge Summary Date of Admission Nov 28, 2024 at 02:51 Date of Discharge: Nov 30, 2024 Admitting Diagnosis Hyponatremia Generalized weakness Urinary tract infection Anemia, unspecified Acute abdominal pain Labs/Diagnostic Data: Laboratory Results Test 11/29/24 05:16 11/27/24 20:19 11/27/24 20:08 White Blood Count 12.5 10^3/uL (4.4-10.8) Red Blood Count 2.63 10^6/uL (4.0-5.20) Hemoglobin 8.3 g/dL (12.2-16.2) Hematocrit 23.8 % (36.0-46.0) Mean Corpuscular Volume 90.5 fL (80.0-100.0) Mean Corpuscular Hemoglobin 31.5 pg (28.0-32.0) Mean Corpuscular Hemoglobin Concent 34.8 g/dL (32.0-36.0) Red Cell Distribution Width 13.5 % (11.8-14.3) Platelet Count 384 10^3/uL (140-450) Mean Platelet Volume 7.4 fL (6.9-10.8) Neutrophils (%) (Auto) 79.9 % (37.0-80.0) Lymphocytes (%) (Auto) 11.5 % (10.0-50.0) Monocytes (%) (Auto) 7.5 % (0.0-12.0) Eosinophils (%) (Auto) 0.9 % (0.0-7.0) Basophils (%) (Auto) 0.2 % (0.0-2.0) Neutrophils # (Auto) 10.0 10 ^3/uL (1.6-8.6) Lymphocytes # (Auto) 1.4 10 ^3/uL (0.4-5.4) Monocytes # (Auto) 0.9 10 ^3/uL (0-1.3) Eosinophils # (Auto) 0.1 10 ^3/uL (0-0.8) Basophils # (Auto) 0 10 ^3/uL (0-0.2) Nucleated Red Blood Cells 0.1 % Sodium Level 139 mmol/L (136-145) Potassium Level 4.7 mmol/L (3.5-5.1) Chloride Level 106 mmol/L (98-107) Carbon Dioxide Level 25 mmol/L (20-31) Anion Gap 8 (5-15) Blood Urea Nitrogen 15 mg/dL (9-23) Creatinine 1.36 mg/dL (0.550-1.02) Glomerular Filtration Rate Calc 54 mL/min (>90) BUN/Creatinine Ratio 11.0 (10.0-20.0) Serum Glucose 85 mg/dL (74-106) Calcium Level 8.6 mg/dL (8.7-10.4) Total Bilirubin 0.6 mg/dL (0.2-1.0) Aspartate Amino Transferase (AST) 16 U/L (13-40) Alanine Aminotransferase (ALT) 14 U/L (7-40) Alkaline Phosphatase 151 U/L (46-116) Total Protein 6.7 g/dL (5.7-8.2) Albumin 3.3 g/dL (3.2-4.8) Urine Color Yellow (Yellow) Urine Clarity Turbid (Clear) Urine pH 5.5 (5.0-9.0) Urine Specific [place] 1.007 (1.001-1.035) Urine Protein Negative (Negative) Urine Ketones Negative (Negative) Urine Blood Trace /uL (Negative) Urine Nitrite 2+ (Negative) Urine Bilirubin Negative (Negative) Urine Urobilinogen 3 mg/dL (Negative) Urine Leukocyte Esterase 3+ /uL (Negative) Urine RBC 3 /hpf (0 - 4) Urine WBC Clumps Present /hpf (None Seen) Urine Microscopic WBC 233 /HPF (0-5) Urine Squamous Epithelial Cells Few /hpf (<5) Urine Bacteria Few /hpf (None Seen) Urine Glucose Normal mg/dL (Normal) Lactic Acid Level 0.7 mmol/L (0.4-2.0) Troponin I High Sensitivity < 3 ng/L (</=34) Lipase 22 U/L (12-53) Beta HCG, Quantitative 54258.0 mIU/mL (1.5-4.2) Other Laboratory Tests 11/29/24 05:16 Brief Hx & Hospital Course: This is a 29 years old female with past medical history of asthma, anxiety, seizure, cancer, ovarian cysts came to emergency department because diffuse bilateral lower abdominal pain for five days. Patient also had nausea, vomiting, and flank pain. The patient was evaluated in the emergency department. [place] [id number]. Obstetric ultrasound review a single living intrauterine with estimated gestation age of 27 weeks the patient however did not know that she is and she did not have any care. The patient also was found to have sepsis due to acute pyelonephritis. The patient was put on IV antibiotic Rocephin. Urine culture was collected. The results showed greater than [id number] mixed harvey so it is probably contaminant. The patient was counseled regarding to taking vitamin, folic acid, and OBGYN follow up for ultrasound. The patient was seen by Dr. Chong, the OBGYN here in the hospital she recommend the patient to establish in OBGYN as outpatient for further follow up closely with her fetus. The patient is still need IV antibiotics for her pyelonephritis however she grew inpatient and decided to leave against medical advice. The patient verbally understands without full treatment for her pyelonephritis the infection can get worse and she can have sepsis again or even or harm to her fetus but she still adamant that she wanted to go home and left against medical advice Physical exam prior to she left against medical advice show: HEENT: Normocephalic atraumatic pupils equal react to light and accommodation. Extraocular muscles intact, conjunctiva pink, oropharynx moist, no thrush, no exudate. Lymphatic: No lymphadenopathy Cardiovascular exam: S1, S2 was heard. No murmurs, rubs, gallops Lung: Clear on auscultation bilaterally, no wheeze, rale, rhonchi. GI: Abdominal soft, nondistended, nontenderness, positive bowel sounds. Extremity: No crepitus, cyanosis, edema. Pedal pulses present bilateral. Full range of motion. Skin: Normal turgor, no rash. Psych: Alert, oriented x3. Neurology: No focal deficits, cranial nerve II to XII grossly intact. This medical document was created using an electronic medical record system with [employer] direct computerized dictation system. Although this document has been carefully reviewed, there may still be some phonetic and typographical errors. These areas are purely typographical due to imperfections of the software programs, and do not reflect any compromise in the patient's medical care. Condition at Discharge: Guarded Final Diagnosis/Problems List 27 weeks of with no care. Sepsis Pyelonephritis Hyponatremia Generalized weakness Urinary tract infection Anemia, unspecified Acute abdominal pain Discharge Disposition: AMA Discharge Instruct/Medications Scheduled Cephalexin (Keflex Capsule), 2 CAP PO BID Doxycycline Hyclate (Doxycycline Hyclate), 1 TAB PO BID Lorazepam (Ativan Tablet), 1 TAB PO BID Metronidazole (Flagyl), 1 TAB PO BID Nitrofurantoin Monohydrate Mac (Macrobid), 100 MG PO BID Miscellaneous Medications Ibuprofen (Childrens Ibuprofen), (Reported) [Ventolin], (Reported) Discharge Statement: "Patient was advised to return to the ER or call 911 if any headaches, dizziness, shortness of breath, chest pain, abdominal pain, bleeding, fevers, or worsening of medical condition. Patient was counseled about treatment plan, medications, possible side effects, patientverbalized understanding. All questions were answered to the best of my ability. This discharge took greater then 30 minutes in planning, reviewing documentation, counseling the patient, and discussing with other team members." ASSESSMENT ASSESSMENT Assessment Date of Service: Nov 30, 2024 Billing Provider: JAMES TANG MD Common Visit Codes: 28088-SXI/OBS DISCH DAY >30min JAMES TANG MD Nov 30, 2024 23:43
== END 2024-11-30 08:56 | disposition left against medical advice (07) | DRG 566 ==
LOC: ER 19:28 → OVERFLOW 11-28 02:51 → TELE-WESTW 11-28 22:42
PROVIDERS: ADMIT Internal Medicine; ATTEND Internal Medicine
DX: O98.812 Other maternal infectious and parasitic diseases complicating pregnancy, second trimester (principal); A41.9 Sepsis, unspecified organism; O23.02 Infections of kidney in pregnancy, second trimester; E87.1 Hypo-osmolality and hyponatremia; O99.012 Anemia complicating pregnancy, second trimester; Z53.29 Procedure and treatment not carried out because of patient's decision for other reasons; O99.282 Endocrine, nutritional and metabolic diseases complicating pregnancy, second trimester; F41.9 Anxiety disorder, unspecified; Z3A.27 27 weeks gestation of pregnancy; Z79.2 Long term (current) use of antibiotics; Z79.899 Other long term (current) drug therapy; Z90.5 Acquired absence of kidney; Z85.528 Personal history of other malignant neoplasm of kidney; Z87.891 Personal history of nicotine dependence
CPT/HCPCS: 36415; 76805; 80048; 80053; 81001; 83605; 83690; 84484; 84702; 85025; 86850; 86900; 86901; 87086; 96374; 96375; G0378; J2405

== ENCOUNTER 2025-01-02 13:18 | Observation (INO) | payer MEDICAID ==
--- NOTE | 2025-01-02 14:08 | DVHDS2 ---
Physician Discharge Progress N Final Diagnosis: abd pain 30wks Operations or Procedures: Operations or Procedures nst reactive reviwed.sono Condition on Discharge: Good Disposition: Home Discharge Instructions: Diet: Regular Activity: No Restrictions, As Tolerated Medications: na Follow Up Care: Specialist: fu with own md today or tmw Discharge Statement: "Patient was advised to return to the ER or call 911 if any headaches, dizziness, shortness of breath, chest pain, abdominal pain, bleeding, fevers, or worsening of medical condition. Patient was counseled about treatment plan, medications, possible side effects, patientverbalized understanding. All questions were answered to the best of my ability. This discharge took greater then 30 minutes in planning, reviewing documentation, counseling the patient, and discussing with other team members." Visit Coding OBGYN Date of Service: Jan 02, 2025 Billing Provider: KASI ANDRADE DO SECURITY OPERATIONS MANAGER Common Visit Codes: 37753-DGLCSXC OBS CARE (HIGH) SECURITY OPERATIONS MANAGER Procedure Codes: 84820-65- NON-STRESS TEST KASI ANDRADE DO Jan 02, 2025 14:08
[2025-01-02] MEDS ORDERED: PREN27TA7 OR ×2 (14:10)
== END 2025-01-02 14:19 | disposition home or self-care (01) ==
LOC: UNDOADMOB 13:18 → LDRP 13:18
PROVIDERS: ADMIT Obstetrics & Gynecology; ATTEND Obstetrics & Gynecology
DX: O26.893 Other specified pregnancy related conditions, third trimester (principal); R10.9 Unspecified abdominal pain; Z3A.30 30 weeks gestation of pregnancy; Z98.890 Other specified postprocedural states; Z79.899 Other long term (current) drug therapy
CPT/HCPCS: 59025; 81002; 94760; G0378

== ENCOUNTER 2025-01-02 18:18 | Observation (INO) | payer MEDICAID ==
[~2025-01-02] VITALS: Ht 167.6 cm; Wt 77.1 kg
[~2025-01-02 18:18] MED LIST changes: +PREN27TA7 OR
[2025-01-02] MEDS: BETAMETHASONE ACET (30mg/5ml) 5ml Vial 6mg/ml IM ONE (19:49)
[2025-01-02] MEDS: LACTATED RINGER'S 1,000 ML IV ONE (19:49)
[2025-01-02 19:50] LABS: Urine Protein, UAD Negative (Negative)
[2025-01-02 19:52] LABS: Hematocrit 27.3 % (36.0-46.0); Hemoglobin 9.1 g/dL (12.2-16.2); Mean Corpuscular Hemoglobin 29.8 pg (28.0-32.0); Mean Corpuscular Volume 89.6 fL (80.0-100.0); Nucleated Red Blood Cells % 0.1 %
[2025-01-02 20:05] LABS: Amphetamine Screen, Urine Neg (NEGATIVE)
[2025-01-02 20:07] LABS: Barbiturate Scree,Urine Neg (NEGATIVE); Benzodiazephine Screen, Urine Neg (NEGATIVE); Cannabinoid Screen, Urine Neg (NEGATIVE); Cocaine Screen, Urine Neg (NEGATIVE); Opiate Scree,Urine Neg (NEGATIVE); Phencyclidine Screen, Urine Neg (NEGATIVE)
[2025-01-02 20:09] LABS: Albumin 3.6 g/dL (3.2-4.8); Anion Gap 10 (5-15); BUN/Creatinine Ratio 12.9 (10.0-20.0); Calcium 9.1 mg/dL (8.7-10.4); Chloride 107 mmol/L (98-107); Potassium 4.9 mmol/L (3.5-5.1); Total Protein 7.9 g/dL (5.7-8.2)
[2025-01-02 20:10] LABS: Alanine Aminotransferase 91 U/L (7-40); Alkaline Phosphatase 235 U/L (46-116); Bilirubin, Total 0.8 mg/dL (0.2-1.0); Blood Urea Nitrogen 38 mg/dL (9-23); Carbon Dioxide 19 mmol/L (20-31); Glucose 69 mg/dL (74-106); Sodium 136 mmol/L (136-145); Uric Acid 9.8 mg/dL (3.1-7.8)
[2025-01-02 20:11] LABS: INR 0.88 (0.9-1.15); Partial Thromboplastin Time 27.1 SEC (24.5-34.5); Prothrombin Time 9.4 sec (9.3-11.8)
[2025-01-02 20:14] LABS: Fibrinogen 836.0 mg/dL (177-375)
--- NOTE | 2025-01-02 20:15 | DVH ---
LIMITED OB ULTRASOUND > 14 WKS: HISTORY: NO PNC, PROM TECHNIQUE: Multiple real-time grayscale images of the gravid uterus with duplex Doppler color flow and M-mode spectral analysis. COMPARISON: US OB ULTRASOUND COMP GTR 14 WKS on DOS: 11/27/24 FINDINGS: Single live intrauterine gestation in the cephalic position. heart rate 139 beats per minute. Placenta posterior and grade 2. Cervix not well visualized. AIDEE 14.1 cm. MVP 6.5 cm. Limited anatomy due to activity. BPD: 8.1 cm, 32 weeks 4 days HC: 29.1 cm, 32 weeks 0 days AC: 27.7 cm, 31 weeks 6 days FL: 5.8 cm, 30 weeks 3 days Average ultrasound gestational age: 31 weeks 5 days, LATISHA 03/01/2025 Estimated weight 1769 g IMPRESSION: Single live intrauterine gestation measuring 31 weeks 5 days. No placenta previa or abruption. Cervix not well visualized.
[2025-01-02] MEDS ORDERED: MAGNESIUM SULFATE 40MG/ML 1,000 ML IV SCH (20:30)
[2025-01-02] MEDS: MAGNESIUM SULFATE 100 ML IV ONE (20:30)
--- NOTE | 2025-01-02 20:55 | DVHHP2 ---
OB CC & HPI Date Date of Admission: Jan 02, 2025 Patient Identification: : 1 Para: 0 EDC: Feb 23, 2025 Chief Complaints: Reason for admission: rupture of membranes (PROM) History of Present Complaints Apurva Conteh is a 29yo with IUP at 32w4d presenting for r/o PROM Patient says she started leaking fluid at 1800 today. Denies UC's/VB/ORNELAS/vision changes/RUQ pain. Endorses +FM. PNC: None Past Medical History Cardiac: No pertinent Hx Pulmonary: Asthma Central Nervous System: No pertinent Hx GI: No pertinent Hx Hemotology/Oncology: No pertinent Hx Hepatobiliary: No pertinent Hx Psychiatric: Anxiety Musculoskeletal: No pertinent Hx Rheumotologic: No pertinent Hx Infectious Disease: No peritnent Hx ENT: No pertinent Hx Renal/: No pertinent Hx Endocrine: No pertinent Hx Dermatology: No pertinent Hx Past Surgical History: Appendectomy Others Nephrectomy OB History OB History Care: None Allergies: Coded Allergies: NO KNOWN ALLERGIES (Unverified , 11/27/24) Home Meds Active Scripts Cephalexin (KEFLEX CAPSULE) 250 Mg Cp, 2 CAP PO BID for 5 Days, #20 CAP Prov:KORINA CHATTERJEE DO 09/06/24 Nitrofurantoin Monohydrate Mac (Macrobid) 100 Mg Cap, 100 MG PO BID for 7 Days, #14 CAP Prov:ALEXANDRU JOSE MD 08/08/21 Lorazepam (ATIVAN TABLET) 0.5 Mg Tb, 1 TAB PO BID for 3 Days, #6 TAB Prov:ALEXANDRU JOSE MD 08/08/21 Metronidazole (Flagyl) 500 Mg Tab, 1 TAB PO BID, #14 TAB 0 Refills Do not consume alcohol while taking this medication. Prov:GYPSY LOPEZ MD 06/17/21 Doxycycline Hyclate (DOXYCYCLINE HYCLATE) 100 Mg Tab, 1 TAB PO BID, #14 TAB 0 Refills Prov:GYPSY LOPEZ MD 06/17/21 Reported Medications Vit W/ Ferrous Fumara () 1 Tab Tab, 1 TAB OR, TAB 01/02/25 [Ventolin] No Conflict Check 11/30/09 Ibuprofen (Childrens Ibuprofen) 40 Mg/Ml Edson 11/30/09 Current Medications Current Medications Medications (Trade) Dose Ordered Sig/Cuong Route PRN Reason Start Time Stop Time Status Last Admin Terbutaline Sulfate (Brethine Inj) 0.25 mg Q20M SC 01/02/25 19:15 01/02/25 19:56 DC Magnesium Sulfate 1,000 ml @ 50 mls/hr Q20H IV 01/02/25 20:30 UNV Family & Social History Family/Social History Past Family/Social History: Social Hx: -positive for fentanyl -feels safe at home Review of Systems Constitutional: No symptom reported Ears, Nose, & Throat: No symptom reported Eyes: No symptom reported Pulmonary/Respiratory: No symptom reported Cardiovascular: No symptom reported Gastrointestinal: No symptom reported Genitourinary: No symptom reported Musculoskeletal: No symptom reported Skin: No symptom reported Psychiatric: No symptom reported Endocrine: No symptom reported Hemotologic/Lymphatic: No symptom reported OB Admission Exam Physical Exam HEENT: Nasal Mucosa Normal, Eyes non-injected, Oropharynx Normal, PERRLA, Moist Membranes, EOMI Heart: Rhythm Normal Lungs: Clear Abdomen: Gravid (1700g by leopolds) Extremities: Normal Reflexes: Normal Cervical Dilatation: Fingertip Station: -2 Membranes: Ruptured (nitrazine positive and pooling noted) Amniotic Fluid: Clear Heart Rate: 130's Accelerations: Accelerations Present Decelerations: No Decelerations Short Term Variability: Present Multimedia Editor Variability: Average (6-25) Contractions on Admission: >10 Minutes Apart Date/Time Contractions Began: 01/02 @ 1800 Intensity: Mild OB Plan Plan Admitting Diagnosis: PROM Plan: Other (transfer to higher level of care) Other Plan: ASSESSMENT: -29 yo , IUP at 32w4d -PROM -Category 1 Tracing -No Care -Hx Fentanyl use in PLAN: -Patient given IV fluids, betamethasone, and terbutaline -Consulted with Dr Chong. Orders received to transfer patient, start magnesium infusion, and ampicillin. MD to call and give report to receiving hospital and MD -Plan of care discussed with patient and her boyfriend. All questions and concerns answered. Visit Coding OBGYN Date of Service: Jan 02, 2025 Billing Provider: VISH TAMEZ CNM CHEMICAL ANALYTICAL SAMPLER Common Visit Codes: 21117-[id number] OBS CARE (HIGH) CHEMICAL ANALYTICAL SAMPLER Procedure Codes: 44553-82- NON-STRESS TEST VISH TAMEZ CNM Jan 02, 2025 20:55
[2025-01-02] MEDS ORDERED: LORazepam 2MG/ML-1ML VIAL IV ONE (21:00)
[2025-01-02] MEDS: AMPICILLIN SOD 2GM INJ 2 GM in SODIUM CHL 0.9% 100 ML IV ONE (21:15)
[2025-01-02] MEDS: TERBUTALINE SULFATE 1 MG/ML 1ML VIAL SC SCH (21:23)
--- NOTE | 2025-01-03 14:11 | DVHTS ---
Transfer Summary Transfer Summary Date of Admission Jan 02, 2025 at 18:18 Date of Transfer: Jan 03, 2025 Transfer Diagnosis prom,32wks,limited pnc,drug use Brief Hx & Hospital Course: pt was admitted for prom,belongs to dr murphy but presented to hand was transferred to [facility] Transfer to: [facility] Discharge Instructions: via air Transfer Status stable Scheduled Cephalexin (Keflex Capsule), 2 CAP PO BID Doxycycline Hyclate (Doxycycline Hyclate), 1 TAB PO BID Lorazepam (Ativan Tablet), 1 TAB PO BID Metronidazole (Flagyl), 1 TAB PO BID Nitrofurantoin Monohydrate Mac (Macrobid), 100 MG PO BID Miscellaneous Medications Ibuprofen (Childrens Ibuprofen), (Reported) Vit W/ Ferrous Fumara (), 1 TAB OR, (Reported) [Ventolin], (Reported) Visit Coding OBGYN Date of Service: Jan 02, 2025 Billing Provider: KASI ANDRADE DO PICTURES EDITOR Common Visit Codes: 07734-BOCPEYP OBS CARE (HIGH) PICTURES EDITOR Procedure Codes: 58174-62- NON-STRESS TEST KASI ANDRADE DO Jan 03, 2025 14:11
--- NOTE | 2025-01-03 14:13 | DVHDS2 ---
Physician Discharge Progress N Final Diagnosis: 32 wks PROM with drug use in preg Operations or Procedures: Operations or Procedures nst reactive reviwed,sono Condition on Discharge: Higher Level of Care Disposition: Acute Care Facility Discharge Instructions: Diet: See Comment Activity: Bed rest Medications: recieved celestone Follow Up Care: Specialist: to [facility] Discharge Statement: "Patient was advised to return to the ER or call 911 if any headaches, dizziness, shortness of breath, chest pain, abdominal pain, bleeding, fevers, or worsening of medical condition. Patient was counseled about treatment plan, medications, possible side effects, patientverbalized understanding. All questions were answered to the best of my ability. This discharge took greater then 30 minutes in planning, reviewing documentation, counseling the patient, and discussing with other team members." Visit Coding OBGYN Date of Service: Jan 02, 2025 Billing Provider: KASI ANDRADE DO CALL CENTER SUPERVISOR Common Visit Codes: 80722-[id number] OBS CARE (HIGH), 84950-ESE/OBS DISCH DAY >30MIN CALL CENTER SUPERVISOR Procedure Codes: 66615-62- NON-STRESS TEST KASI ANDRADE DO Jan 03, 2025 14:13
[2025-01-04 08:57] LABS: RAPID PLASMA REAGIN QUANT 1:4 Titer (NONREACTIVE)
== END 2025-01-02 22:16 ==
LOC: LDRP 18:18
PROVIDERS: ADMIT Obstetrics & Gynecology; ATTEND Obstetrics & Gynecology
DX: O99.513 Diseases of the respiratory system complicating pregnancy, third trimester (principal); J45.909 Unspecified asthma, uncomplicated; O42.913 Preterm premature rupture of membranes, unspecified as to length of time between rupture and onset of labor, third trimester; R79.1 Abnormal coagulation profile; Z90.5 Acquired absence of kidney; Z3A.32 32 weeks gestation of pregnancy; Z79.899 Other long term (current) drug therapy; Z20.6 Contact with and (suspected) exposure to human immunodeficiency virus [HIV]
CPT/HCPCS: 36415; 59025; 76805; 80053; 80307; 81001; 81002; 83735; 84112; 84550; 85025; 85384; 85610; 85730; 86592; 86593; 86703; 86762; 86780; 86803; 86850; 86900; 86901; 87340; 94760; 96361; 96365; 96372; G0378; J0290; 96360